=== PATIENT | female | born 1960 | race African-American/Black ===

== ENCOUNTER 2021-12-19 10:58 | Outpatient (REF) | payer OTHER, SELFPAY ==
[2021-12-19 13:18] LABS: MANUAL DIFF FLAG NO
[2021-12-19 13:34] LABS: Basophils Absolute Auto 0.1 X10*3/uL (0.0-0.2); Basophils Percent Auto 0.9 % (0-2); Eosinophils Absolute Auto 0.2 X10*3/uL (0.0-0.4); Eosinophils Percent Auto 2.9 % (0-4); Hematocrit 45.8 % (37.0-47.0); Hemoglobin 14.8 g/dl (12.0-16.0); Imm Gran Abs Auto 0.02 X10*3/uL (0.00-0.03); Imm Gran Pct Auto 0.3 % (0.0-0.4); Lymphocytes Absolute Auto 2.9 X10*3/uL (1.2-4.9); Lymphocytes Percent Auto 36.3 % (20-40); Mean Corpuscular HGB Conc 32.3 g/dl (31.0-35.0); Mean Corpuscular Volume 86.6 fL (80.0-98.0); Mean Platelet Volume 11.7 fL (9.4-12.3); Monocytes Absolute Auto 0.7 X10*3/uL (0.1-1.2); Monocytes Percent Auto 8.4 % (2-11); Neutrophils Absolute Auto 4.1 x10*3/uL (2.0-8.3); Neutrophils Percent Auto 51.2 % (45-73); Platelet Count 255 X10*3/uL (160-400); Red Blood Count 5.29 X10*6/uL (4.20-5.50); Red Cell Distribution Width 13.1 % (11.0-16.0)
[2021-12-19 13:37] LABS: Alanine Aminotransferase 43 U/L (0-31); Albumin Level 3.9 g/dL (3.5-5.0); Alkaline Phosphatase 103 U/L (39-117); Anion Gap 16 (12-20); Aspartate Amino Transferase 30 U/L (5-31); Bilirubin Total 0.5 mg/dL (0.0-1.0); Blood Urea Nitrogen 8 mg/dL (9-16); C Reactive Protein 0.28 mg/dL (< or = 0.50); Calcium 8.9 mg/dL (8.4-10.2); Carbon Dioxide 23 mmol/L (22-29); Chloride 105 mmol/L (96-108); Estimated Glomerular Filt Rate > 60; Glucose Random 87 mg/dL (60-115); Potassium 4.4 mmol/L (3.3-5.1); Sodium 140 mmol/L (135-145); Total Protein 7.3 g/dL (6.5-8.0)
[2021-12-19 19:09] LABS: Erythrocyte Sedimentation Rate 5 MM/HR (0-20)
[2021-12-21 22:36] LABS: TS Negative Control Passed; TS Panel A 0; TS Panel B 0; TS Positive Control Passed; TSpotTB Negative (Negative)
== END 2021-12-19 10:59 | disposition home or self-care (01) ==
LOC: HO.10HDL 10:58
PROVIDERS: Visit Provider Internal Medicine Rheumatology
DX: M05.9 Rheumatoid arthritis with rheumatoid factor, unspecified (principal); M51.36 Other intervertebral disc degeneration, lumbar region; Z79.899 Other long term (current) drug therapy
CPT/HCPCS: 36415; 80053; 85025; 85652; 86140; 86481; 99212

== ENCOUNTER → 2022-04-19 10:40 | Outpatient (BNVA) | payer OTHER, SELFPAY | PROVIDERS: PCP Internal Medicine; Visit Provider Internal Medicine Rheumatology | DX: M05.9 Rheumatoid arthritis with rheumatoid factor, unspecified (principal); M19.049 Primary osteoarthritis, unspecified hand; M51.36 Other intervertebral disc degeneration, lumbar region; Z79.52 Long term (current) use of systemic steroids; Z79.899 Other long term (current) drug therapy | CPT/HCPCS: 99212 ==

== ENCOUNTER → 2022-11-02 10:40 | Outpatient (BNVA) | payer OTHER, SELFPAY | PROVIDERS: PCP Internal Medicine; Visit Provider Internal Medicine Rheumatology | DX: M05.9 Rheumatoid arthritis with rheumatoid factor, unspecified (principal); M51.36 Other intervertebral disc degeneration, lumbar region; E55.9 Vitamin D deficiency, unspecified; Z79.899 Other long term (current) drug therapy; Z79.52 Long term (current) use of systemic steroids | CPT/HCPCS: 99212 ==

== ENCOUNTER 2022-11-02 12:05 | Outpatient (REF) | payer OTHER, SELFPAY ==
[2022-11-02 13:34] LABS: MANUAL DIFF FLAG NO
[2022-11-02 13:38] LABS: Basophils Absolute Auto 0.1 X10*3/uL (0.0-0.2); Basophils Percent Auto 0.8 % (0-2); Eosinophils Absolute Auto 0.3 X10*3/uL (0.0-0.4); Eosinophils Percent Auto 3.1 % (0-4); Hematocrit 47.9 % (37.0-47.0); Hemoglobin 15.6 g/dl (12.0-16.0); Imm Gran Abs Auto 0.01 X10*3/uL (0.00-0.03); Imm Gran Pct Auto 0.1 % (0.0-0.4); Lymphocytes Percent Auto 35.4 % (20-40); Mean Corpuscular HGB Conc 32.6 g/dl (31.0-35.0); Mean Corpuscular Hemoglobin 28.2 pg (27.0-33.0); Mean Corpuscular Volume 86.6 fL (80.0-98.0); Mean Platelet Volume 11.9 fL (9.4-12.3); Monocytes Absolute Auto 0.7 X10*3/uL (0.1-1.2); Neutrophils Absolute Auto 4.5 x10*3/uL (2.0-8.3); Neutrophils Percent Auto 52.6 % (45-73); Platelet Count 264 X10*3/uL (160-400); Red Blood Count 5.53 X10*6/uL (4.20-5.50); Red Cell Distribution Width 13.1 % (11.0-16.0); White Blood Count 8.5 X10*3/uL (4.8-10.8)
[2022-11-02 14:08] LABS: C Reactive Protein 0.23 mg/dL (< or = 0.50)
[2022-11-02 14:21] LABS: Erythrocyte Sedimentation Rate 7 MM/HR (0-20)
[2022-11-04 17:13] LABS: TS Negative Control Passed; TS Panel A 0; TS Panel B 0; TS Positive Control Passed; TSpotTB Negative (Negative)
== END 2022-11-02 12:06 | disposition home or self-care (01) ==
LOC: HO.10HDL 12:05
PROVIDERS: Visit Provider Internal Medicine Rheumatology
DX: Z11.1 Encounter for screening for respiratory tuberculosis (principal); M51.36 Other intervertebral disc degeneration, lumbar region; M05.9 Rheumatoid arthritis with rheumatoid factor, unspecified; E55.9 Vitamin D deficiency, unspecified; Z79.52 Long term (current) use of systemic steroids; Z79.899 Other long term (current) drug therapy
CPT/HCPCS: 36415; 85025; 85652; 86140; 86481

== ENCOUNTER 2022-11-17 14:51 | Outpatient (REF) | payer OTHER, SELFPAY ==
--- NOTE | ~2022-11-17 | MM_ITS ---
EXAMINATION: BONE DENSITOMETRY CLINICAL INDICATION: Long-term, current, use of systemic steroids. COMPARISON: This is the patient's baseline examination. TECHNIQUE: Using a [employer] DXA System (software version: 13.1) manufactured by [employer], dual-energy x-ray absorptiometry was performed of the lumbar spine and left hip. The images are of good technical quality. Summary results are attached. FINDINGS: LEFT FEMUR, NECK: BMD 0.976 g/cm2, Z-score -0.2, T-score -0.4, normal. LEFT FEMUR, TOTAL: BMD 1.062 g/cm2, Z-score 0.3, T-score 0.4, normal. AP SPINE L1-L4: BMD 1.279 g/cm2, Z-score 1.2, T-score 0.8, normal. IDENTIFIED RISK FACTORS: Rheumatoid arthritis, osteoporosis, height loss. Early menopause, secondary osteoporosis, glucocorticoids (chronic). HISTORY OF FRACTURE: None listed. MEDICATIONS: Vitamin D. MM/XR DEXA axial skeleton IMPRESSION: 1. DIAGNOSIS: Normal bone density based on the lowest T-score value of -0.4 in the femoral neck applying World Health Organization criteria. 2. 10-YEAR FRACTURE RISK PREDICTION, FRAX: According to the guidelines, FRAX calculation should only be performed on patients in the osteopenia bone density category. Therefore, FRAX was not performed on this patient. 3. Treatment Recommendations: NOF guidelines recommend consideration for treatment in postmenopausal women and men age 50 and older presenting with the following: -A hip or vertebral (clinical or morphometric) fracture. -T-score less than or equal to -2.5 at the femoral neck or spine after appropriate evaluation to exclude secondary causes. -Low bone mass at the hip or spine and a 10-year fracture probability by FRAX of greater than or equal to 3% for hip fracture or greater than or equal to 20% for major osteoporotic fracture based on the [place] adapted WHO algorithm. 4. Other Recommendations: All treatment decisions require clinical judgment and consideration of individual patient factors, including patient preferences, comorbidities, previous drug use, risk factors not captured in the FRAX model (e.g. frailty, falls, vitamin D deficiency, increased bone turnover, interval significant decline in bone density) and possible under or overestimation of fracture risk by FRAX. FUTURE SCAN RECOMMENDATION: People with diagnosed cases of osteoporosis or at high risk for fracture should have regular bone mineral density tests. For patients eligible for Medicare, routine testing is allowed once every 2 years. The testing frequency can be increased to one year for patients who have rapidly progressing disease, those who are receiving or discontinuing medical therapy to restore bone mass, or have additional risk factors.
== END 2022-11-17 14:52 | disposition home or self-care (01) ==
LOC: HO.MAMMO 14:51
PROVIDERS: Visit Provider Internal Medicine Rheumatology
DX: Z13.820 Encounter for screening for osteoporosis (principal); Z78.0 Asymptomatic menopausal state; Z79.52 Long term (current) use of systemic steroids
CPT/HCPCS: 77080

== ENCOUNTER 2023-02-28 10:20 | Outpatient (AMB) | payer OTHER, SELFPAY ==
--- NOTE | 2023-02-28 10:21 | A.OFFVIS_ITS ---
Intake Vital Signs 02/28/23 10:26 Height 5 ft 4 in Weight 161 lb 6.054 oz BMI 27.7 BP 142/80 H Blood Pressure Location Lt brachial Position Sitting Pulse 75 Pulse Source Pulse Oximeter Temp 97.2 F Temp Source Skin Pulse Oximetry (%) 97 Oxygen Delivery Method Room Air Intake Visit Reasons: RA Intake Note: Patient presents today to follow up on RA. c/o bakari hand pain and bakari ankle pain Mds Rn Required: No Accompanied by: Self / Same As Patient Allergies No Known Allergies Allergy (Verified 02/28/23 10:25) HPI HPI Comments History of Present Illness Details The patient returns for evaluation of her rheumatoid arthritis. She remains on the Humira taking 40 mg every 2 weeks and prednisone 1 mg daily. She gets occasional back pain and sciatica for which she does have some Percocet available. She did get some benefit with a corticosteroid injection in the back from physiatry. She is thinking about returning for another injection for that problem. She still has at the end of the day more pains in the knees and hands. She wonders if this will progress as she gets older. At her last visit and today she again says that towards the end of the interval between Humira shot she gets more pain in the hands and knees. I had indicated she should be taking the Humira every week but she was afraid to, worried about the Humira damaging her immune system. She has already received the COVID and flu shots for this season. She does have an active job at [employer]. She had seen her primary doctor about some memory difficulties and further workup is pending. She had a bone density test that did not show any osteoporosis. [facility] Surgical History No history of previous surgery Family History Mother CHF (congestive heart failure) Arthritis Father Diabetes Brother Diabetes Sister CHF (congestive heart failure) Arthritis Maternal Grandfather Cancer Maternal Grandmother Cancer Social History Household Members: Spouse Housing: Apartment Are you a primary direct care counselor to a significant other at home: No Do you presently have visiting nurse or other home services: No Alcohol intake: never Patient Tobacco Use Status: Former Tobacco user Years Smoked: Quit 1 year ago e-Cigarette/Vaping Use: Never Used service: No Current occupational status: employed Current occupation: [employer] Review of Systems Const Details: Negative for appetite change, weight change, fever, chills, malaise and fatigue Eyes Details: Negative for vision change, dry eyes,headaches and dizziness GI Details: Negative indigestion/heartburn, nausea, abdominal pain, bowel changes, diarrhea, constipation and bloody stool. Skin/Breast Details: Negative for itching, rash, hives, Raynaud's symptoms, sun sensitivity, and skin cancer Neuro Details: Memory difficulties at times. Negative for epilepsy, palsy, stroke, changes in speech, tingling and weakness Brian/Lymph Details: Negative for excessive bruising or bleeding. Physical Exam Vital Signs: Last Vital Signs Temp 97.2 F 02/28/23 10:26 Pulse 75 02/28/23 10:26 BP 142/80 H 02/28/23 10:26 Pulse Ox 97 02/28/23 10:26 Oxygen Delivery Method Room Air 02/28/23 10:26 BMI result Body Mass Index 27.7 APPEARANCE: Patient in no acute distress EYES no redness, pupils equal and reactive to light, eyelids normal. No temporal artery tenderness redness or swelling. Cervical Spine:.? Full range of motion without pain; no tenderness. Thoracic Spine:? No scoliosis.? No tenderness on palpation. Lumbar Spine:.? Alignment normal.? Full range of motion without pain, no tenderness. Chest Wall:.? No tenderness, swelling, increased warmth or erythema. Hands:.? Right:? There is no swelling in the MCPs but the 1st is slightly tender.? There is some slight bony enlargement at the thumb IP and the 2nd PIP joints these are slightly the tender today.? There is some mild bony enlargement and tenderness at the 2nd DIP joint.? No flexor tendon triggering, thenar atrophy or sensory loss.? Left:? Mild tenderness without swelling at the 1st 2 MCP joints.? There is slight tenderness without swelling at the 2nd and 3rd PIP joints.? There is some minimal bony enlargement and slight tenderness at the 2nd PIP joint.? She has no flexor tendon triggering, thenar atrophy or sensory loss is appreciated. Wrists:? Left: Mild pain with flexion extension at 75 degrees.? Slight tenderness but no swelling.? Right:? Normal pain-free range of motion without tenderness, swelling, increased warmth or erythema. Elbows:. Normal pain-free range of motion without tenderness, swelling, increased warmth or erythema. Shoulders:.??Left:? Mild discomfort with extremes of normal range of motion. There is some slight anterior tenderness without abductor weakness or adenopathy.? Right joint? Full range of motion without pain. No tenderness, weakness, swelling, increased warmth or erythema. Hips:.? Full range of motion without pain. Hip bursa:.? No tenderness. Knees:.?? Normal pain-free range of motion without tenderness, swelling, increased warmth or erythema.? There is no effusion or crepitation Ankles:.? Normal pain-free range of motion without tenderness, swelling, increased warmth or erythema. Feet:? Right:? Mild hallux valgus and MTP enlargement at the 1st MTP.? That area is slightly tender.? Left: Mild bony enlargement and tenderness at the 1st MTP.? No other areas of tenderness or swelling. Results Reviewed Results Reviewed: Laboratory Tests 12/19/21 11/02/22 11:00 12:08 WBC 8.5 Hgb 15.6 ESR 5 7 C-Reactive Protein 0.28 0.23 T-scores from DEXA in November 2022: Femoral neck -0.4, femur -0.4, LS spine+ 0.8 Assessment & Plan Assessment & Plan (1) Osteoarthritis of finger: Code(s): M19.049 - Primary osteoarthritis, unspecified hand (2) Long-term use of immunosuppressant medication: Code(s): Z79.899 - Other long term care social worker (current) drug therapy (3) Seropositive rheumatoid arthritis: Comment: Onset late 2016 - migratory pattern Hydroxychloroquine use not possible due to retinal abnormalities Sulfasalazine started 08/22 - ineffective by 04/23 Methotrexate started 04/23 - stopped 01/24 due to LFT elelvation Humira started summer 2020: She did well but was frightened by COVID outbreak so she stopped that at the end of 2020. Humira restarted 2021 Code(s): M05.9 - Rheumatoid arthritis with rheumatoid factor, unspecified Plan Rheumatoid arthritis with some tenderness in the hands with minimal if any synovitis palpable. Some of this pain could be in joints with some mild OA. However the fact that it gets better with Humira but then worsens towards the end of the Humira dosing interval indicates perhaps she could benefit from a more frequent dosing on the Humira. We will again ask her to go up to weekly. I believe this has already been approved by her insurance. She also was refilled on the diclofenac gel that she could put on the fingers if need be. Her bone density looked good so I do not think she needs additional treatment and she seems to be tolerating this very low dose of prednisone. We will check inflammatory markers and CBC today. Follow-up in about 4 months. Orders: Orders Erythrocyte Sedimentation Rate Today M05.9 - Rheumatoid arthritis with rheumatoid factor, unspecified Complete Blood Count Auto Diff Today M05.9 - Rheumatoid arthritis with rheumatoid factor, unspecified, Z79.899 - Other long term care social worker (current) drug therapy C Reactive Protein Today M05.9 - Rheumatoid arthritis with rheumatoid factor, unspecified Medications: Refilled adalimumab (Humira(CF) Pen) Note increase in frequency of Humira dosing to once a week 40 mg (0.4 mL) subcut QWEEK 4 ea 5RF M05.9 - Rheumatoid arthritis with rheumatoid factor, unspecified diclofenac sodium 1% 1-2 gram topically to affected joints twice a day if needed 100 grams 4RF M19.049 - Primary osteoarthritis, unspecified hand Coding Level of Care Code Est Pt Level 3 (65399) Diagnoses Osteoarthritis of finger M19.049 Long-term use of immunosuppressant medication Z79.899 Seropositive rheumatoid arthritis M05.9
[2023-02-28 10:26] VITALS: BP 142/80; PULSE 75; TEMP 36.2; O2SAT 97; BMI 27.7
== END 2023-02-28 11:00 | disposition home or self-care (01) ==
PROVIDERS: PCP Internal Medicine; Visit Provider Internal Medicine Rheumatology
DX: M19.049 Primary osteoarthritis, unspecified hand (principal); Z79.899 Other long term (current) drug therapy; M05.79 Rheumatoid arthritis with rheumatoid factor of multiple sites without organ or systems involvement
CPT/HCPCS: 99214

== ENCOUNTER → 2023-02-28 10:20 | Outpatient (BNVA) | payer OTHER, SELFPAY | PROVIDERS: PCP Internal Medicine; Visit Provider Internal Medicine Rheumatology | DX: M05.9 Rheumatoid arthritis with rheumatoid factor, unspecified (principal); M19.049 Primary osteoarthritis, unspecified hand; Z79.899 Other long term (current) drug therapy | CPT/HCPCS: 99212 ==

== ENCOUNTER 2023-02-28 11:24 | Outpatient (REF) | payer OTHER, SELFPAY ==
[2023-02-28 13:17] LABS: MANUAL DIFF FLAG NO
[2023-02-28 13:23] LABS: Basophils Absolute Auto 0.1 X10*3/uL (0.0-0.2); Basophils Percent Auto 0.7 % (0-2); Eosinophils Absolute Auto 0.2 X10*3/uL (0.0-0.4); Eosinophils Percent Auto 2.8 % (0-4); Hematocrit 46.1 % (37.0-47.0); Imm Gran Abs Auto 0.02 X10*3/uL (0.00-0.03); Imm Gran Pct Auto 0.2 % (0.0-0.4); Lymphocytes Absolute Auto 2.5 X10*3/uL (1.2-4.9); Lymphocytes Percent Auto 30.6 % (20-40); Mean Corpuscular HGB Conc 32.5 g/dl (31.0-35.0); Mean Corpuscular Hemoglobin 28.1 pg (27.0-33.0); Mean Corpuscular Volume 86.5 fL (80.0-98.0); Mean Platelet Volume 11.7 fL (9.4-12.3); Monocytes Absolute Auto 0.7 X10*3/uL (0.1-1.2); Monocytes Percent Auto 7.9 % (2-11); Neutrophils Absolute Auto 4.8 x10*3/uL (2.0-8.3); Neutrophils Percent Auto 57.8 % (45-73); Platelet Count 237 X10*3/uL (160-400); Red Blood Count 5.33 X10*6/uL (4.20-5.50); Red Cell Distribution Width 12.9 % (11.0-16.0); White Blood Count 8.3 X10*3/uL (4.8-10.8)
[2023-02-28 13:41] LABS: C Reactive Protein 0.18 mg/dL (< or = 0.50)
[2023-02-28 14:11] LABS: Erythrocyte Sedimentation Rate 6 MM/HR (0-20)
== END 2023-02-28 11:25 | disposition home or self-care (01) ==
LOC: HO.10HDL 11:24
PROVIDERS: Visit Provider Internal Medicine Rheumatology
DX: M05.9 Rheumatoid arthritis with rheumatoid factor, unspecified (principal); Z79.899 Other long term (current) drug therapy
CPT/HCPCS: 36415; 85025; 85652; 86140

== ENCOUNTER 2023-10-26 10:02 | Outpatient (AMB) | payer OTHER, SELFPAY ==
[2023-10-26 10:16] VITALS: BP 116/64; PULSE 69; O2SAT 95; BMI 26.0
--- NOTE | 2023-10-26 10:16 | MHC.OFFVIS ---
Vital Signs 10/26/23 10:16 Height 5 ft 4 in Weight 151 lb 3.794 oz BMI 26.0 BP 116/64 Blood Pressure Location Rt brachial Position Sitting Pulse 69 Pulse Source Pulse Oximeter Pulse Oximetry (%) 95 Oxygen Delivery Method Room Air Intake Visit Reasons: RA/CM Child Care Required: No Accompanied by: Self / Same As Patient Allergies No Known Allergies Allergy (Verified 10/26/23 10:17) Medication List - Last Reconciled 10/26/23 by Preeti Pierson MD acyclovir 400 mg PO BID PRN cholecalciferol (vitamin D3) 50 mcg PO DAILY cyclobenzaprine 5 mg PO TID PRN diclofenac sodium 1% 1-2 gram topically to affected joints twice a day if needed Humira(CF) Pen (adalimumab) 40 mg (0.4 mL) subcut QWEEK NS oxycodone-acetaminophen 5-325 mg 1 tab PO DAILY PRN pantoprazole (Protonix) 40 mg PO DAILY prednisone 2 mg (2 x 1 mg) PO DAILY HPI Comments Details: 63-year-old female with seropositive RA returns for follow-up. She was last seen by Dr. Reyna 02/2023. After last visit patient started taking the Humira weekly instead of every other week. She states that it did help. She continues to have some pain in her fingers. Usually the DIPs. She has a right foot bunion that is painful and she would like to get it surgically fixed. Yun to use the prednisone 2 mg daily. Most recent history by Dr. Reyna 02/2023: The patient returns for evaluation of her rheumatoid arthritis. She remains on the Humira taking 40 mg every 2 weeks and prednisone 1 mg daily. She gets occasional back pain and sciatica for which she does have some Percocet available. She did get some benefit with a corticosteroid injection in the back from physiatry. She is thinking about returning for another injection for that problem. She still has at the end of the day more pains in the knees and hands. She wonders if this will progress as she gets older. At her last visit and today she again says that towards the end of the interval between Humira shot she gets more pain in the hands and knees. I had indicated she should be taking the Humira every week but she was afraid to, worried about the Humira damaging her immune system. She has already received the COVID and flu shots for this season. She does have an active job at [employer]. She had seen her primary doctor about some memory difficulties and further workup is pending. She had a bone density test that did not show any osteoporosis. [facility] Surgical History No history of previous surgery Family History Mother CHF (congestive heart failure) Arthritis Father Diabetes Brother Diabetes Sister CHF (congestive heart failure) Arthritis Maternal Grandfather Cancer Maternal Grandmother Cancer Social History Household Members: Spouse Housing: Apartment Are you a primary manager intensive care unit to a significant other at home: No Do you presently have visiting nurse or other home services: No Alcohol intake: never Patient Tobacco Use Status: Former Tobacco user Years Smoked: Quit 1 year ago e-Cigarette/Vaping Use: Never Used service: No Current occupational status: employed Current occupation: [employer] Review of Systems [facility] [place] Reports deformity, Reports arthralgias, Reports joint swelling and Reports stiffness Physical Exam Const General: cooperative, healthy appearing and comfortable Nutritional Appearance: overweight Orientation/consciousness: patient oriented x3 Limitations: no limitations HEENT Head: Yes normocephalic and Yes atraumatic Resp Effort & Inspection: normal respiratory effort and able to speak in complete sentences Auscultation: clear to auscultation bilaterally Cardio Rate: regular rate Rhythm: regular rhythm Skin General skin exam: no rashes or lesions noted Neuro General: patient oriented x3 Extrem Other: No active synovitis both hands , wrists Multiple Heberden's nodes, most notable is bilateral index DIPs that are slightly tender Normal range of motion of elbows and shoulders without pain No knee pain with full flexion-extension Bilateral bunions, much more prominent on the right mildly tender line Second through 5th MTPs without tenderness bilaterally Results Reviewed Results Reviewed: Laboratory Tests 3 T-scores from DEXA in November 2022: Femoral neck -0.4, femur -0.4, LS spine+ 0.8 Assessment & Plan Assessment & Plan (1) Seropositive rheumatoid arthritis: Comment: ++RF ++CCP Onset late 2016 - migratory pattern Hydroxychloroquine use not possible due to retinal abnormalities Sulfasalazine started 08/22 - ineffective by 04/23 Methotrexate started 04/23 - stopped 01/24 due to LFT elelvation Humira started summer 2020: She did well but was frightened by COVID outbreak so she stopped that at the end of 2020. Humira restarted 2021 advanced to weekly 02/2023 Code(s): M05.9 - Rheumatoid arthritis with rheumatoid factor, unspecified Category: Medical Plan: This is 63-year-old female with seropositive RA presents for follow-up. This is her 1st visit with me. She used to follow-up with Dr. Reyna. Patient is doing quite well with no active synovitis on Humira 40 mg weekly and prednisone 2 mg daily. Her RA is well controlled, likely the prednisone helps her hand osteoarthritis Continue Humira 40 mg weekly Labs today and before next visit in 6 months (2) Long-term use of immunosuppressant medication: Code(s): Z79.899 - Other fpc (current) drug therapy Category: Medical (3) On prednisone therapy: Code(s): Z79.52 - detention (current) use of systemic steroids Category: Medical Plan: T-scores from DEXA in November 2022: Femoral neck -0.4, femur -0.4, LS spine+ 0.8 Only on 2 mg daily. Advised patient to try to lower it to 1 mg daily. (4) Osteoarthritis of hands, bilateral: Code(s): M19.041 - Primary osteoarthritis, right hand; M19.042 - Primary osteoarthritis, left hand Category: Medical Qualifiers: Osteoarthritis type: primary Qualified Code(s): M19.041 - Primary osteoarthritis, right hand; M19.042 - Primary osteoarthritis, left hand Plan: Referred patient to OT. She is interested in finger splints (5) Bilateral bunions: Code(s): M21.611 - Bunion of right foot; M21.612 - Bunion of left foot Category: Medical Plan: Advised patient to establish care with a power and recovery supervisor Plan I spent 45 minutes reviewing patient's chart, evaluating patient, ordering diagnostic workup, counseling patient and documenting in the chart Orders: Orders Complete Blood Count Auto Diff 6 Months M05.9 - Rheumatoid arthritis with rheumatoid factor, unspecified Erythrocyte Sedimentation Rate 6 Months M05.9 - Rheumatoid arthritis with rheumatoid factor, unspecified Comprehensive Met. Panel Today M05.9 - Rheumatoid arthritis with rheumatoid factor, unspecified C Reactive Protein Today M05.9 - Rheumatoid arthritis with rheumatoid factor, unspecified Erythrocyte Sedimentation Rate Today M05.9 - Rheumatoid arthritis with rheumatoid factor, unspecified Comprehensive Met. Panel 6 Months M05.9 - Rheumatoid arthritis with rheumatoid factor, unspecified C Reactive Protein 6 Months M05.9 - Rheumatoid arthritis with rheumatoid factor, unspecified Complete Blood Count Auto Diff Today M05.9 - Rheumatoid arthritis with rheumatoid factor, unspecified OT Evaluation and Treatment Today M19.041 - Primary osteoarthritis, right hand, M19.042 - Primary osteoarthritis, left hand Medications: Refilled prednisone 2 mg (2 x 1 mg) PO DAILY 60 tabs 3RF M05.9 - Rheumatoid arthritis with rheumatoid factor, unspecified Coding Level of Care Code Est Pt Level 5 (58805) Diagnoses Seropositive rheumatoid arthritis M05.9 Long-term use of immunosuppressant medication Z79.899 On prednisone therapy Z79.52 Primary osteoarthritis of both hands M19.041; M19.042 Osteoarthritis type: primary Bilateral bunions M21.611; M21.612
== END 2023-10-26 10:30 | disposition home or self-care (01) ==
PROVIDERS: PCP Internal Medicine; Visit Provider Student in an Organized Health Care Education/Training Program
DX: M05.79 Rheumatoid arthritis with rheumatoid factor of multiple sites without organ or systems involvement (principal); Z79.899 Other long term (current) drug therapy; Z79.52 Long term (current) use of systemic steroids; M19.041 Primary osteoarthritis, right hand; M19.042 Primary osteoarthritis, left hand; M21.611 Bunion of right foot; M21.612 Bunion of left foot
CPT/HCPCS: 99215

== ENCOUNTER → 2023-10-26 10:02 | Outpatient (BNVA) | payer OTHER, SELFPAY | PROVIDERS: PCP Internal Medicine; Visit Provider Student in an Organized Health Care Education/Training Program | DX: M05.9 Rheumatoid arthritis with rheumatoid factor, unspecified (principal); M19.041 Primary osteoarthritis, right hand; M19.042 Primary osteoarthritis, left hand; M21.611 Bunion of right foot; M21.612 Bunion of left foot; Z79.52 Long term (current) use of systemic steroids; Z79.899 Other long term (current) drug therapy | CPT/HCPCS: 99212 ==

== ENCOUNTER 2023-10-26 10:35 | Outpatient (REF) | payer OTHER, SELFPAY ==
[2023-10-26 13:14] LABS: MANUAL DIFF FLAG NO
[2023-10-26 13:20] LABS: Basophils Absolute Auto 0.1 X10*3/uL (0.0-0.2); Basophils Percent Auto 0.7 % (0-2); Eosinophils Absolute Auto 0.3 X10*3/uL (0.0-0.4); Eosinophils Percent Auto 3.6 % (0-4); Hemoglobin 14.6 g/dl (12.0-16.0); Imm Gran Abs Auto 0.01 X10*3/uL (0.00-0.03); Imm Gran Pct Auto 0.1 % (0.0-0.4); Lymphocytes Absolute Auto 2.5 X10*3/uL (1.2-4.9); Lymphocytes Percent Auto 34.7 % (20-40); Mean Corpuscular HGB Conc 33.2 g/dl (31.0-35.0); Mean Corpuscular Hemoglobin 28.1 pg (27.0-33.0); Mean Corpuscular Volume 84.8 fL (80.0-98.0); Monocytes Absolute Auto 0.7 X10*3/uL (0.1-1.2); Monocytes Percent Auto 10.1 % (2-11); Neutrophils Absolute Auto 3.7 x10*3/uL (2.0-8.3); Neutrophils Percent Auto 50.8 % (45-73); Platelet Count 245 X10*3/uL (160-400); Red Blood Count 5.19 X10*6/uL (4.20-5.50); Red Cell Distribution Width 13.3 % (11.0-16.0); White Blood Count 7.2 X10*3/uL (4.8-10.8)
[2023-10-26 13:33] LABS: Alanine Aminotransferase 93 U/L (0-31); Albumin Level 3.7 g/dL (3.5-5.0); Alkaline Phosphatase 110 U/L (39-117); Anion Gap 13 (12-20); Aspartate Amino Transferase 63 U/L (5-31); Bilirubin Total 0.6 mg/dL (0.0-1.0); Blood Urea Nitrogen 14 mg/dL (9-16); C Reactive Protein 0.29 mg/dL (< or = 0.50); Calcium 9.3 mg/dL (8.4-10.2); Carbon Dioxide 26 mmol/L (22-29); Chloride 104 mmol/L (96-108); Estimated Glomerular Filt Rate > 60; Glucose Random 114 mg/dL (60-115); Potassium 3.9 mmol/L (3.3-5.1); Sodium 139 mmol/L (135-145)
[2023-10-26 14:32] LABS: Erythrocyte Sedimentation Rate 15 MM/HR (0-20)
== END 2023-10-26 10:36 | disposition home or self-care (01) ==
LOC: HO.10HDL 10:35
PROVIDERS: Visit Provider Student in an Organized Health Care Education/Training Program
DX: M05.9 Rheumatoid arthritis with rheumatoid factor, unspecified (principal)
CPT/HCPCS: 36415; 80053; 85025; 85652; 86140

== ENCOUNTER 2024-04-17 10:49 | Outpatient (REF) | payer OTHER, SELFPAY ==
[2024-04-17 11:33] LABS: MANUAL DIFF FLAG NO
[2024-04-17 11:46] LABS: Basophils Absolute Auto 0.1 X10*3/uL (0.0-0.2); Basophils Percent Auto 0.8 % (0-2); Eosinophils Absolute Auto 0.2 X10*3/uL (0.0-0.4); Eosinophils Percent Auto 2.9 % (0-4); Hematocrit 45.6 % (37.0-47.0); Imm Gran Abs Auto 0.01 X10*3/uL (0.00-0.03); Imm Gran Pct Auto 0.1 % (0.0-0.4); Lymphocytes Absolute Auto 2.5 X10*3/uL (1.2-4.9); Lymphocytes Percent Auto 32.5 % (20-40); Mean Corpuscular HGB Conc 32.9 g/dl (31.0-35.0); Mean Corpuscular Hemoglobin 28.5 pg (27.0-33.0); Mean Corpuscular Volume 86.7 fL (80.0-98.0); Mean Platelet Volume 11.1 fL (9.4-12.3); Monocytes Absolute Auto 0.6 X10*3/uL (0.1-1.2); Neutrophils Absolute Auto 4.3 x10*3/uL (2.0-8.3); Neutrophils Percent Auto 55.7 % (45-73); Platelet Count 236 X10*3/uL (160-400); Red Blood Count 5.26 X10*6/uL (4.20-5.50); Red Cell Distribution Width 13.2 % (11.0-16.0); White Blood Count 7.7 X10*3/uL (4.8-10.8)
[2024-04-17 12:15] LABS: Alanine Aminotransferase 45 U/L (0-31); Albumin Level 3.6 g/dL (3.5-5.0); Alkaline Phosphatase 115 U/L (39-117); Anion Gap 11 (12-20); Aspartate Amino Transferase 33 U/L (5-31); Bilirubin Total 0.4 mg/dL (0.0-1.0); Blood Urea Nitrogen 12 mg/dL (9-16); C Reactive Protein 0.12 mg/dL (< or = 0.50); Calcium 9.3 mg/dL (8.4-10.2); Carbon Dioxide 27 mmol/L (22-29); Chloride 106 mmol/L (96-108); Estimated Glomerular Filt Rate > 60; Glucose Random 183 mg/dL (60-115); Potassium 3.7 mmol/L (3.3-5.1); Sodium 140 mmol/L (135-145); Total Protein 7.3 g/dL (6.5-8.0)
[2024-04-17 12:25] LABS: Erythrocyte Sedimentation Rate 8 MM/HR (0-20)
== END 2024-04-17 10:50 | disposition home or self-care (01) ==
LOC: HO.LAB 10:49
PROVIDERS: PCP Internal Medicine; Visit Provider Student in an Organized Health Care Education/Training Program
DX: M05.9 Rheumatoid arthritis with rheumatoid factor, unspecified (principal)
CPT/HCPCS: 36415; 80053; 85025; 85652; 86140

== ENCOUNTER 2024-06-18 15:37 | Outpatient (AMB) | payer OTHER, SELFPAY ==
--- NOTE | 2024-06-18 15:43 | MHC.OFFVIS ---
Vital Signs 06/18/24 15:46 06/18/24 15:47 Height 5 ft 4 in Weight 153 lb 10.595 oz 153 lb 10.595 oz BMI 26.4 BP 134/80 Blood Pressure Location Lt brachial Position Sitting Pulse 88 Pulse Source Pulse Oximeter Pulse Oximetry (%) 98 Oxygen Delivery Method Room Air Intake Visit Reasons: RA Intake Note: Patient presents for RA. Allergies No Known Allergies Allergy (Verified 06/18/24 15:46) Medication List - Last Reconciled 06/18/24 by Tana Triplett MD acyclovir 400 mg PO BID PRN cholecalciferol (vitamin D3) 50 mcg PO DAILY cyclobenzaprine 5 mg PO TID PRN diclofenac sodium 1% 1-2 gram topically to affected joints twice a day if needed Humira(CF) Pen (adalimumab) 40 mg (0.4 mL) subcut QWEEK NS oxycodone-acetaminophen 5-325 mg 1 tab PO DAILY PRN pantoprazole (Protonix) 40 mg PO DAILY prednisone 2 mg (2 x 1 mg) PO DAILY HPI Comments Details: Patient is a 64-year-old female with GERD, polyarticular osteoarthritis and seropositive rheumatoid arthritis here today for follow up Interval History: Patient last seen 10/26/[address] Pierson. At that time she had increased her Humira from every other week to weekly which was noted with improvement in her pain. Also continues to use prednisone 2 mg daily Today, Notes that she is a little more achy all over Stiffness x 1 hour Rheumatologic History: ++RF ++CCP Onset late 2016 - migratory pattern Hydroxychloroquine use not possible due to retinal abnormalities Sulfasalazine started 08/22 - ineffective by 04/23 Methotrexate started 04/23 - stopped 01/24 due to LFT elelvation Humira started summer 2020: She did well but was frightened by COVID outbreak so she stopped that at the end of 2020. Humira restarted 2021 advanced to weekly 02/2023 Current Rheumatology Medication(s): Humira 40 mg every week Prednisone 2 mg daily [facility] Medical History (Updated 06/18/24 @ 16:06 by Tana Triplett MD) Encounter for monitoring of adalimumab therapy Surgical History No history of previous surgery Family History Mother CHF (congestive heart failure) Arthritis Father Diabetes Brother Diabetes Sister CHF (congestive heart failure) Arthritis Maternal Grandfather Cancer Maternal Grandmother Cancer Social History Household Members: Spouse Housing: Apartment Are you a primary daycare director to a significant other at home: No Do you presently have visiting nurse or other home services: No 75 years or older and lives alone: No Alcohol intake: never Patient Tobacco Use Status: Former Tobacco user Years Smoked: Quit 1 year ago e-Cigarette/Vaping Use: Never Used service: No Current occupational status: employed Current occupation: [employer] Review of Systems Const Details: Review of Systems Constitutional: Denies fever, chills, weight loss ENT: Denies vision changes, eye pain or eye redness, dental caries, dry mouth GI: Denies nausea, vomiting, diarrhea, abdominal pain, change in BM Pulm: Denies SOB, MORATAYA, hemoptysis, wheezing Cards: Denies chest pain, palpitations Skin: Denies Raynaud's, rash, nail changes, photosensitivity, OFFICE CLERK ROUTINE: Denies headaches, weakness, paresthesias, recurrent falls MSK: as per HPI All other systems reviewed and are unremarkable except noted above Physical Exam Vital Signs: Last Vital Signs Pulse 88 06/18/24 15:47 BP 134/80 06/18/24 15:47 Pulse Ox 98 06/18/24 15:47 Oxygen Delivery Method Room Air 06/18/24 15:47 BMI result Body Mass Index 26.4 Vital signs reviewed Physical Examination CONSTITUITIONAL Patient alert and cooperative. Well appearing and in no apparent painful distress HEENT Conjunctiva and sclera clear. ?Pupils equal round and reactive to light. ?No lymphadenopathy. ? CHEST/RESPIRATORY SYSTEM Normal respiratory effort and able to speak in complete sentences. ?Clear to auscultation bilaterally. ?No crackles, rales, rhonchi, wheezes heard. CARDIAC SYSTEM Regular rate and rhythm. ?S1 and S2 heard no murmurs. ?Radial pulses intact bilaterally MSK Hands: ?Good boxcar weigher strength bilaterally. No deformities noted. ?No synovitis noted to the MCPs, PIPs or DIPs. Mild TTP over the Herbeden's nodes and PIPs. No TTP of MCPs Wrists: ?Full range of motion at the wrists without pain. ?No tenderness to palpation or synovitis noted to the wrists. Elbows: Full range of motion without pain. No tenderness, weakness, swelling, increased warmth or erythema. Shoulders: Full range of motion without pain. Mild TTP of the bilateral AC shoulder Hips: Full range of motion without pain. Hip bursa: No tenderness to palpation Knees: ?Full range of motion. ?No tenderness, swelling, increased warmth or erythema.?No effusion or crepitations Ankles: Full range of motion. ?No tenderness, swelling, increased warmth or erythema.? Feet: ?Negative squeeze test. ?No tenderness to palpation or swelling of the MTPs. Tender points:?No tenderness to palpation of the bilateral trapezius, supraspinatus, greater trochanters, anterior costochondral junctions, bilateral gluteal areas, bilateral suboccipital muscle insertions SKIN Skin intact without rashes. Hyperpigmentation noted to the right MTP likely post inflammatory Results Reviewed Results Reviewed: Laboratory Tests 11/02/22 04/17/24 12:08 11:31 WBC 7.7 RBC 5.26 Hgb 15.0 Hct 45.6 Plt Count 236 ESR 8 Sodium 140 Potassium 3.7 Chloride 106 Carbon Dioxide 27 BUN 12 Creatinine 0.76 AST 33 H ALT 45 H TB Test (T-Spot) Com Negative Assessment & Plan Assessment & Plan (1) Seropositive rheumatoid arthritis: Comment: ++RF ++CCP Onset late 2016 - migratory pattern Hydroxychloroquine use not possible due to retinal abnormalities Sulfasalazine started 08/22 - ineffective by 04/23 Methotrexate started 04/23 - stopped 01/24 due to LFT elelvation Humira started summer 2020: She did well but was frightened by COVID outbreak so she stopped that at the end of 2020. Humira restarted 2021 advanced to weekly 02/2023 Code(s): M05.9 - Rheumatoid arthritis with rheumatoid factor, unspecified Category: Medical Plan: #Seropositive RA Patient is a 63-year-old female with seropositive rheumatoid arthritis. No evidence of active synovitis today on examination. Can continue with Humira and low-dose prednisone Plan - Humira 40mg SC every week - Prednisone 2mg daily - Labs today: CBC, CMP, ESR, CRP, hepatitis panel, T spot - RTC 4 months - Labs before visit: CBC, CMP, ESR, CRP (2) Osteoarthritis of hands, bilateral: Code(s): M19.041 - Primary osteoarthritis, right hand; M19.042 - Primary osteoarthritis, left hand Category: Medical Qualifiers: Osteoarthritis type: primary Qualified Code(s): M19.041 - Primary osteoarthritis, right hand; M19.042 - Primary osteoarthritis, left hand Plan: #Bilateral hand OA Patient's pain is likely from her bilateral hand OA. Discussed with patient that osteoarthritis is not the same as rheumatoid arthritis and it is difficult to treat because the underlying mechanism is loss of cartilage and bone rubbing on bone. Recommended topical diclofenac 4 times a day Plan - Topical diclofenac 1% 4 times a day (3) Osteoporosis screening: Code(s): Z13.820 - Encounter for screening for osteoporosis Plan: #Osteoporosis screening Patient last DEXA 11/17/2022 which was normal. Given that she is on long-term steroids we will need to do a repeat DEXA this year. Plan - Order DEXA at next visit (4) Encounter for monitoring of adalimumab therapy: Code(s): Z51.81 - Encounter for therapeutic drug level monitoring; Z79.620 - long term care administrator (current) use of immunosuppressive biologic Category: Medical Plan: #Long-term Use of TNF Inhibitors: Humira Discussed with the patient the benefits and risks of TNF inhibitors for the management of the rheumatic condition Benefits include reduce pain, maintenance of remission and reduction of flares as well as ?progression of the disease Risks include injection sites/infusion reactions, serious infections (such as bacterial infections, opportunistic infections), malignancy, delaminating syndromes, autoimmune phenomena, CHF exacerbations, palmar plantar psoriasis and cytopenias Recommended rotating injection sites, and holding medication during and for up to 1 week after resolution of a febrile illness or open skin wound (5) On prednisone therapy: Code(s): Z79.52 - long term care administrator (current) use of systemic steroids Category: Medical Plan: #Long-term Use of Steroids Discussed with patient the risks and benefits of steroid for managing the rheumatic condition Benefits include: - Reduced pain, improved mobility, increased participation in activities, and decreased progression of disease Risks include: - GI upset, potential ultrasound worsening or formation (especially in patients > 65 years old), elevated blood pressure/worsening hypertension, elevated blood sugar/worsening diabetes control, worsening of bone density, elevated lipids/worsening triglycerides, cataract formation, weight gain Recommended using proton pump inhibitors (PPIs) for the duration of steroid use to reduce the risk of gastric ulcers and vitamin-D daily to reduce the risk of osteoporosis Labs checked: ?A1c, T spot, hepatitis-B and C serologies Pneumocystis jiroveci prophylaxis: ?Patient with risk factors including steroids greater than 50 mg for more than 30 days, age greater than 60 years, and lung involvement from underlying rheumatic disease requires prophylaxis and will be given so Plan I spent 35 minutes reviewing the record and labs, taking a history, examining the patient, discussing the treatment plan and documenting in the medical record Orders: Orders Comprehensive Met. Panel 4 Months M05.9 - Rheumatoid arthritis with rheumatoid factor, unspecified, Z51.81 - Encounter for therapeutic drug level monitoring, Z79.620 - [facility] (current) use of immunosuppressive biologic C Reactive Protein 4 Months M05.9 - Rheumatoid arthritis with rheumatoid factor, unspecified, Z51.81 - Encounter for therapeutic drug level monitoring, Z79.620 - [facility] (current) use of immunosuppressive biologic Complete Blood Count Auto Diff Today M05.9 - Rheumatoid arthritis with rheumatoid factor, unspecified, Z51.81 - Encounter for therapeutic drug level monitoring, Z79.620 - [facility] (current) use of immunosuppressive biologic C Reactive Protein Today M05.9 - Rheumatoid arthritis with rheumatoid factor, unspecified, Z51.81 - Encounter for therapeutic drug level monitoring, Z79.620 - long term care administrator (current) use of immunosuppressive biologic Complete Blood Count Auto Diff 4 Months M05.9 - Rheumatoid arthritis with rheumatoid factor, unspecified, Z51.81 - Encounter for therapeutic drug level monitoring, Z79.620 - [facility] (current) use of immunosuppressive biologic Erythrocyte Sedimentation Rate 4 Months M05.9 - Rheumatoid arthritis with rheumatoid factor, unspecified, Z51.81 - Encounter for therapeutic drug level monitoring, Z79.620 - long term care administrator (current) use of immunosuppressive biologic Erythrocyte Sedimentation Rate Today M05.9 - Rheumatoid arthritis with rheumatoid factor, unspecified, Z51.81 - Encounter for therapeutic drug level monitoring, Z79.620 - [facility] (current) use of immunosuppressive biologic Hepatitis A,B,C Profile Today M05.9 - Rheumatoid arthritis with rheumatoid factor, unspecified, Z51.81 - Encounter for therapeutic drug level monitoring, Z79.620 - [facility] (current) use of immunosuppressive biologic T Spot TB Today M05.9 - Rheumatoid arthritis with rheumatoid factor, unspecified, Z51.81 - Encounter for therapeutic drug level monitoring, Z79.620 - [facility] (current) use of immunosuppressive biologic Comprehensive Met. Panel Today M05.9 - Rheumatoid arthritis with rheumatoid factor, unspecified, Z51.81 - Encounter for therapeutic drug level monitoring, Z79.620 - [facility] (current) use of immunosuppressive biologic Medications: Refilled Humira(CF) Pen (adalimumab) 40 mg (0.4 mL) subcut QWEEK 4 ea 5RF NS M05.9 - Rheumatoid arthritis with rheumatoid factor, unspecified prednisone 2 mg (2 x 1 mg) PO DAILY 60 tabs 5RF M05.9 - Rheumatoid arthritis with rheumatoid factor, unspecified Coding Level of Care Code Est Pt Level 4 (23004) Complex EM visit Add On G2211 Diagnoses Seropositive rheumatoid arthritis M05.9 Primary osteoarthritis of both hands M19.041; M19.042 Osteoarthritis type: primary Osteoporosis screening Z13.820 Encounter for monitoring of adalimumab therapy Z51.81; Z79.620 On prednisone therapy Z79.52
[2024-06-18 15:47] VITALS: BP 134/80; PULSE 88; O2SAT 98; BMI 26.4
--- OUTSIDE RECORDS SUMMARY | 2024-06-18 16:24 | XMS_ITS | Encounter Summary ---
Author Organization [facility] Address [address] [place] [address] Care Team Providers Care Manager Mac Name Role Phone Adiel Price MD Primary Care Provider [phone] Reason for Visit * Reason Onset Date Comments Chills 06/02/2024 Covid positive Encounter Details Date Type Department Care Team (Late st Contact Info) Description 06/02/2024 Telephone Adult Medicine [address] [phone] Adiel Price MD [address] [place] [phone] Chills (Covid positive 05/30/24) Social History Tobacco Use Types Packs/Day Years Used Date Smoking Tobacco: Former Cigarettes 0.3 13.7 1 - 11/04/2019 Smokeless Tobacco: Never Alcohol Use Standard Drinks/Week Comments No 0 (1 standard drink = 0.6 oz pur e alcohol) Comments Unknown Sex and Gender Information Value Date Recorded Sex Assigned at Female 04/09/2024 4:21 PM EST Legal Sex Female 3:43 PM EST Gender Identity Female 04/09/2024 4:21 PM EST Sexual Orientation Straight 04/09/2024 4: 21 PM EST documented as of this encounter Progress Notes * Gisselle Paula RN - 06/02/2024 5:06 PM EST Pt is tested positive for covid 05/30 C/O chest wall tightness with deep breath and cough, denies SOB ( has no COPD/ asthma or any respiratory condition ) , able to speak in full sentences and has no audible wheezing, cough is productivefor Sputum, denies fever . able to take PO with no appetite , denies N/V/D, No abd pain, Advised home care following the Cough/ breathing problems Protocol. RN reinforced telephone consultation and advice. Reviewed with the patient the signs and symptoms to watch for that would require immediate attention. If symptoms change, worsen or increase in intensity, to call back immediately. Pt to use home care instructions per CDC and will call if develops new or worsening symptoms she will go to [place] for evaluation of chest tightness * Brooke Cervantes - 06/02/2024 4:03 PM EST PT is returning call back. * Gisselle Paula RN - 06/02/2024 2:43 PM EST Pt tested positive for covid 3 days ago she is requesting an inhaler for chest tightness, no hx of asthma , no inhaler in med hx Call to pt. Left message for pt to call triage * OLIVA beard - 06/02/2024 1:07 PM EST Pt had tested positive 05/30/24 and she is back at work today she is wondering if she ca get a inhaler to help relive her chest tightness. Pt still can't tast or smell anything but tother then tat sheis ok best number to call pt back on is [phone] documented in this encounter Plan of Treatment Upcoming Encounters Date Type Department Care Team (Late st Contact Info) Description 07/07/2024 3:00 PM EST Office Visit Adult Medicine [address] [phone] Adiel Price MD [address] [place] [phone] 08/22/2024 1:50 PM EDT Appointment Radiology Department - [address] [phone] documented as of this encounter Visit Diagnoses Not on filedocumented in this encounter Care Teams Manager Mac Relationship Specialty Start Date End Date Adiel Price MD [address] [place] [address] PCP - General Internal Medicine 12/16/21 documented as of this encounter
--- OUTSIDE RECORDS SUMMARY | 2024-06-18 16:24 | XMS_ITS | Clinical Summary ---
Author Organization 175 [facility] Address [address] [place] [address] Phone Care Team Providers Care Pigment Supplier Name Role Phone Adiel Price MD Primary Care Provider Allergies No known active allergies Medications atorvastatin (LIPITOR) 20 mg tablet Take 1 tablet (20 mg total) by mouth 1 (one) time each day. 4 Active famotidine (PEPCID) 20 mg tablet Take 1 tablet (20 mg total) by mouth 2 (two) times a day. 3 Active cholecalciferol (VITAMIN D-3) 50 mcg (2,000 unit) tablet Take 1 tablet (2,000 Units total) by mouth 1 (one) time each day. 3 Active adalimumab (Humira,CF, Pen) 40 mg/0.4 mL pen once a week. 3 Active cyclobenzaprine (FLEXERIL) 5 mg tablet Take 1 Tablet by mouth 3 times daily as needed for Muscle spasms for up to 30 doses. 2 Active predniSONE (DELTASONE) 1 mg tablet Route: Take 1 Tablet by mouth daily. - Or 2 Active acyclovir (ZOVIRAX) 400 mg tablet Take 1 tablet (400 mg total) by mouth 2 (two) times a day. 2 Active nystatin-triamc inolone (MYCOLOG II) ointment Apply a thin layer to affected area nightly x 2 weeks, then MWF Active aspirin 81 mg EC tablet TAKE 1 TABLET BY MOUTH EVERY DAY 90 tablet 1 4 Active aspirin 81 mg EC tablet Take 1 tablet (81 mg total) by mouth 1 (one) time each day. 4 Active amLODIPine (NORVASC) 5 mg tablet Take 1 tablet (5 mg total) by mouth 1 (one) time each day. 90 tablet 1 4 Active oxyCODONE-aceta minophen (PERCOCET) 5-325 mg per tablet Take 1 tablet by mouth 1 (one) time each day if needed for moderate pain. Max Daily Amount: 1 tablet 28 tablet 5 Active pantoprazole (PROTONIX) 40 mg EC tablet Take 1 tablet (40 mg total) by mouth 1 (one) time each day. 90 tablet 1 5 Active pantoprazole (PROTONIX) 40 mg EC tablet Take 1 tablet (40 mg total) by mouth 1 (one) time each day. 4 06/09/19 25 Discontinu ed(Reorder ) oxyCODONE-aceta minophen (PERCOCET) 5-325 mg per tablet Take 1 tablet by mouth 1 (one) time each day if needed for moderate pain. Max Daily Amount: 1 tablet 28 tablet 4 06/06/19 25 Discontinu ed(Reorder ) oxyCODONE-aceta minophen (PERCOCET) 5-325 mg per tablet Take 1 tablet by mouth 1 (one) time each day if needed for moderate pain. Max Daily Amount: 1 tablet 28 tablet 5 06/07/19 25 Discontinu ed(Reorder ) Active Problems Problem Noted Date Diagnosed Date Lichen sclerosus 02/05/2024 Mixed hyperlipidemia 06/05/2023 Primary hypertension 06/05/2023 TIA (transient ischemic attack) 06/05/2023 Left sided sciatica 12/16/2021 Over weight 12/16/2021 Gastritis with intestinal metaplasia of stomach 08/30/2021 Gastroesophageal reflux disease 05/30/2021 Seropositive rheumatoid arthritis 08/29/2017 Overview (02/05/2024): Onset late 2016 - migratory pattern Hydroxychloroquine use not possible due to retinal abnormalities Sulfasalazine started 08/22 - ineffective by 04/23 Methotrexate started 04/23 - soppted 01/24 due to LFT elelvation Humira tried - patient stopped due to anxiety about COVID Lumbar degenerative disc disease 04/04/2017 Overview (02/05/2024): With left sciatica Insomnia 05/19/2014 Fibroid uterus 07/27/2010 Encounters Date Type Department Care Team Description 06/02/2024 Telephone [place] [facility] [place] [address] [place] [phone] Adiel Price MD Chills (Covid positive 05/30/24) 04/17/2024 9:10 AM EST - 04/17/2024 11:59 PM EST Hospital Encounter [facility] Ultrasound [address] [place] [address] Fatty liver Discharge Disposition: Home or Self Care 03/26/2024 Telephone Gastroenterology - [place] 175 [facility] 175 [facility] [address] [place] [address] Jon Ribera, PA from Last 3 Months Immunizations Name Administration Dates Next Due Influenza Quadravalent, MDCK , 0.5ml, preservative free (Flucelvax) 6mo and older 02/21/2022,04/06/2021,01/26/2020,2018,01/24/2018 Influenza trivalent, with preservative (Fluzone; Afluria) 6mo and older 02/11/2023 Tdap Tetanus diptheria acell ular pertussis (Boostrix; Adacel) 7yo and older 04/07/2010 Surgical History Surgery Date Site/Laterality Comments OTHER SURGICAL HISTORY PROCEDURE: ---- OTHER ----; COMMENT: lararscopy-fibroid removed COLONOSCOPY 01/30/2013 PROCEDURE: HISTORICAL COLONOSCOPY; COMMENT: normal; repeat in ten yrs OTHER SURGICAL HISTORY 08/10/2021 PROCEDURE: OUTSIDE ENDOSCOPY; COMMENT: Normal duodenum. Erythematous mucosa in the greater curvature of the gastric body and antrum. Biopsy pending Medical History Medical History Date Comments Lumbar degenerative disc disease 04/04/2017 DX:Lumbar degenerative disc disease; COMMENT: With left sciatica Seropositive rheumatoid arth ritis (CMS/HCC) 08/29/2017 DX:Seropositive rheumatoid a rthritis (HCC); COMMENT: Onset late 2016 - migratory pattern Hydroxychloroquine use not possible due to retinal abnormalities Sulfasalazine started 08/22 Functional dyspepsia DX:Function al dyspepsia Esophageal reflux DX:Esophageal reflux Atypical chest pain DX:Atypical chest pain Elevated liver enzymes DX:Elevat ed liver enzymes Fatty liver DX:Fatty liver Hyperlipidemia DX:Hyperlipidemi a Stress at work DX:Stress at wor k Family History Medical History Relation Name Comments Diabetes Brother 1 Diabetes Father Other cancer Maternal Grandfather Other cancer Maternal Grandmother Arthritis Mother Heart failure Mother Stomach cancer Paternal Grandmother Arthritis Sister Heart failure Sister Colon cancer Neg Hx Ovarian cancer Neg Hx Relation Name Status Comments Brother 1 (Age 53) cva Brother 2 (Age 49) chf Brother 3 Alive cabg age 56 Father (Age 79) cva, htn,d m Maternal Grandfather Maternal Grandmother Mother (Age 72) chf,dm Paternal Grandmother Sister chf, dm Social History Tobacco Use Types Packs/Day Years [...] Orientation Straight 04/09/2024 4: 21 PM EST Obstetrics History Last Filed Vital Signs Vital Sign Reading Time Taken Comments Blood Pressure 158/69 2024 10:24 AM EDT Pulse 69 2024 10:24 AM EDT Temperature - - Respiratory Rate - - Oxygen Saturation - - Inhaled Oxygen Concentration - - Weight 71.7 kg (158 lb) 03/12/2024 9:45 AM EST Height 162.6 cm (5' 4.02 ) 03/12/2024 9:45 AM ES T Body Mass Index 27.11 03/12/2024 9:45 AM EST Plan of Treatment Upcoming Encounters Date Type Department Care Team (Late st Contact Info) Description 07/07/2024 3:00 PM EST Office Visit Adult Medicine [facility] [address] [phone] Adiel Price MD [address] [place] [address] 08/22/2024 1:50 PM EDT Appointment Radiology Department - [address] [phone] Health Maintenance Due Date Last Done Comments Pneumococcal Vaccine: Pediatrics (0 to 5 Years) and At-Risk Patients (6 to 64 Years) (1 of 2 - PCV) 1967 Hepatitis A Vaccines (1 of 2 - Risk 2-dose series) 02/13/1980 Zoster Vaccines (1 of 2) 2011 Hepatitis B Vaccines (1 of 3 - Risk 3-dose series) 2021 RSV Immunization Patients 60+ Years Old (1 - Risk 60-74 years 1-dose series) 2021 HIV Screening 04/15/2022 Social Influencers of Health Screening 04/15/2022 COVID-19 Vaccine ( season) 2024 02/11/2023, 09/22/2021, 12/22/2020, Additional history exists Influenza Vaccine (#1) 2024 , 02/21/2022, 04/06/2021, Additional history exists Hypertension/CHF/CAD Annual BMP Blood Test 08/22/2024 08/23/2023 Depression Screening 11/03/2024 11/04/2023 Cervical Cancer Screening: HPV 02/10/2025 02/11/2020 Breast Cancer Screening 08/14/2025 08/15/19 24, 08/02/2022, 05/02/2021, Additional history exists Cholesterol Screening (Lipid Panel) 08/22/2028 08/23/2023 Colorectal Cancer Screening: Colonoscopy 10/31/2033 11/01/2023 DTaP,Tdap,and Td Vaccines (3 - Td or Tdap) 01/10/2034 01/11/2024, 04/07/2010 Hepatitis C Screening Completed 04/07/2020 HIB Vaccines Aged Out No longer eligi ble based on patient's age to complete this topic HPV Vaccines Aged Out No longer eligi ble based on patient's age to complete this topic IPV Vaccines Aged Out No longer eligi ble based on patient's age to complete this topic MMR Vaccines Aged Out No longer eligi ble based on patient's age to complete this topic Meningococcal ACWY Vaccine Aged Out N o longer eligible based on patient's age to complete this topic RSV Immunization Patients Under 20 months Aged Out No longer eligible based on patient's age to complete this topic Varicella Vaccines Aged Out No longer eligible based on patient's age to complete this topic Procedures Procedure Name Priority Date/Time Associated Diagnosis Comments US ABDOMEN LIMITED Routine 04/17/2024 9: 39 AM EST Fatty liver DEPRESSION SCREENING Routine 11/04/2023 COLONOSCOPY Routine 11/01/2023 ANNUAL BMP BLOOD TEST Routine 08/23/2023 LIPID PANEL Routine 08/23/2023 SCREENING MAMMOGRAPHY BI 2-VIEW BREAST INC CAD Routine 08/15/2023 11:27 AM EDT Encounter for screening mammogram for malignant neoplasm of breast HEPATITIS C SCREENING Routine 04/07/2020 HPV Routine 02/11/2020 from Last 3 Months or Most Recently Relevant to Health Maintenance Results * US Abdomen Limited (04/17/2024 9:39 AM EST) Anatomical Region Laterality Modality Body Ultrasound 04/17/2024 2:02 PM EST Impressions 04/17/2024 2:08 PM EST Echogenic liver parenchyma suggesting steatosis. Small echogenic focus in the lower pole of the right kidney which could represent a nonobstructing calculus. -------- FINAL REPORT -------- Dictated By: Bennie Bledsoe Dictated Date: 04/17/2024 14:02 ET Assigned Physician: Bennie Bledsoe Reviewed and Electronically Signed By: Bennie Bledsoe Signed Date: 04/17/2024 14:08 ET Workstation ID: [id number] Transcribed By: Self Edit Transcribed Date: 04/17/2024 14:03 ET Narrative 04/17/2024 2:08 PM EST Right upper quadrant ultrasound, 04/17/2024. HISTORY: Fatty liver. COMPARISON: 04/10/2006. TECHNIQUE: Grayscale, color Doppler, and spectral Doppler ultrasound evaluation of the right upper quadrant of the abdomen. FINDINGS: LIVER: Echogenic parenchyma. ??No focal lesion. ??Normal flow in main portal vein. BILIARY: Normal appearance of the gallbladder and biliary tree. ??Negative sonographic Muñoz sign. PANCREAS: Visualized portions are normal. RIGHT KIDNEY: Normal size and echotexture. ??No hydronephrosis. ??There is a small echogenic focus with associated artifact in the lateral lower pole which could represent a small nonobstructing calculus. Procedure Note Bennie Bledsoe MD - 04/17/2024 Right upper quadrant ultrasound, 04/17/2024. HISTORY: Fatty liver. COMPARISON: 04/10/2006. TECHNIQUE: Grayscale, color Doppler, and spectral Doppler ultrasoundevaluation of the right upper quadrant of the abdomen. FINDINGS: LIVER: Echogenic parenchyma. No focal lesion. Normal flow in main portalvein. BILIARY: Normal appearance of the gallbladder and biliary tree. Negativesonographic Muñoz sign. PANCREAS: Visualized portions are normal. RIGHT KIDNEY: Normal size and echotexture. No hydronephrosis. There is asmall echogenic focus with associated artifact in the lateral lower polewhich could represent a small nonobstructing calculus. IMPRESSION: Echogenic liver parenchyma suggesting steatosis. Small echogenic focus in the lower pole of the right kidney which couldrepresent a nonobstructing calculus. -------- FINAL REPORT -------- Dictated By: Bennie Bledsoe Dictated Date: 04/17/2024 14:02 ET Assigned Physician: Bennie Bledsoe Reviewed and Electronically Signed By: Bennie Bledsoe Signed Date: 04/17/2024 14:08 ET Workstation ID: [id number] Transcribed By: Self Edit Transcribed Date: 04/17/2024 14:03 ET Jon CASSIDY IMG US PROCEDURES Final Result * Depression Screening (11/04/2023) Pathologist [facility] Depression Screening ABSTRACTED [facility] Provider HEALTH MAINTENANCE Final Result * Colonoscopy (11/01/2023) Pathologist [facility] Colonoscopy no interpretation , abstracted Anatomical Region Laterality Modality Other [facility] Provider HEALTH MAINTENANCE Final Result * Annual BMP Blood Test (08/23/2023) Pathologist [facility] Annual BMP Blood Test ABSTRACTED Result [facility] Provider [facility] Final Result * Lipid panel (08/23/2023) [facility] LDL/HDL Ratio 3 0 - 4 Triglycerides 103 0 - 150 mg/dL Cholesterol 122 0 - 200 mg/dL HDL 42 >=40 mg/dL LDL Cholesterol 60 0 - 100 mg/dL Blood Venous blood specimen / Unknown Result [facility] Provider LAB BLOOD ORDERABLES Janene l Result * SCREENING MAMMOGRAPHY BI 2-VIEW BREAST INC CAD (08/15/2023 11:27 AM EDT) Anatomical Region Laterality Modality Radiographic Sharon ging 08/02/2022 11:1 4 AM EDT Narrative 08/15/2023 1:11 PM EDT This is a summary report. The complete report is available in the patient's medical record. If you cannot access the medical record, please contact the sending organization for a detailed fax or copy. Full field digital screening tomosynthesis mammography, reviewed with CAD and compared to previous. The breasts are composed mostly of fatty tissue. ??No suspicious mass, architectural distortion or suspicious calcifications are identified. IMPRESSION: : No mammographic evidence of malignancy. BIRADS 1-Negative; N. 5 year breast cancer risk assessment 1.5 % Lifetime breast cancer risk assessment 6.5 % Breast cancer risk category Low (<15%) Procedure Note Caden Eubanks MD - 12/24/2023 This is a summary report. The complete report is available in thepatient's medical record. If you cannot access the medical record, pleasecontact the sending organization for a detailed fax or copy. Full field digital screening tomosynthesis mammography, reviewed with CADand compared to previous. The breasts are composed mostly of fatty tissue.No suspicious mass, architectural distortion or suspicious calcificationsare identified. IMPRESSION: : No mammographic evidence of malignancy. BIRADS 1-Negative; N. 5 year breast cancer risk assessment 1.5 % Lifetime breast cancer risk assessment 6.5 % Breast cancer risk category Low (<15%) Daryl CASSIDY IMG XR PROCEDURES Final Result * Hepatitis C Screening (04/07/2020) Hepatitis C Screening ABSTRACTED Historical Provider HEALTH MAINTENANCE Final Result * Cervical Cancer Screening: HPV (02/11/2020) Pathologist [facility] Cervical Cancer Screening: HPV negative,a bstracted Historical Provider HEALTH MAINTENANCE Final Result from Last 3 Months or Most Recently Relevant to Health Maintenance Insurance PLAN Care Teams Pigment Supplier Relationship Specialty Start Date End Date Adiel Price MD [address] [place] [address] PCP - General Internal Medicine 12/16/21
== END 2024-06-18 16:13 | disposition home or self-care (01) ==
PROVIDERS: PCP Internal Medicine; Visit Provider Student in an Organized Health Care Education/Training Program
DX: M05.79 Rheumatoid arthritis with rheumatoid factor of multiple sites without organ or systems involvement (principal); M19.041 Primary osteoarthritis, right hand; M19.042 Primary osteoarthritis, left hand; Z13.820 Encounter for screening for osteoporosis; Z51.81 Encounter for therapeutic drug level monitoring; Z79.620 Long term (current) use of immunosuppressive biologic; Z79.52 Long term (current) use of systemic steroids
CPT/HCPCS: 99214; G2211

== ENCOUNTER → 2024-06-18 15:37 | Outpatient (BNVA) | payer OTHER, SELFPAY | PROVIDERS: PCP Internal Medicine; Visit Provider Student in an Organized Health Care Education/Training Program | DX: M05.9 Rheumatoid arthritis with rheumatoid factor, unspecified (principal); M19.041 Primary osteoarthritis, right hand; M19.042 Primary osteoarthritis, left hand; Z13.820 Encounter for screening for osteoporosis; Z51.81 Encounter for therapeutic drug level monitoring; Z79.620 Long term (current) use of immunosuppressive biologic; Z79.52 Long term (current) use of systemic steroids | CPT/HCPCS: 99212 ==

== ENCOUNTER 2024-06-30 11:44 | Outpatient (REF) | payer OTHER, SELFPAY ==
[2024-06-30 12:12] LABS: MANUAL DIFF FLAG NO
[2024-06-30 12:19] LABS: Basophils Absolute Auto 0.1 X10*3/uL (0.0-0.2); Basophils Percent Auto 0.9 % (0-2); Eosinophils Absolute Auto 0.2 X10*3/uL (0.0-0.4); Eosinophils Percent Auto 2.2 % (0-4); Hematocrit 46.5 % (37.0-47.0); Hemoglobin 15.1 g/dl (12.0-16.0); Imm Gran Abs Auto 0.02 X10*3/uL (0.00-0.03); Imm Gran Pct Auto 0.2 % (0.0-0.4); Lymphocytes Absolute Auto 2.7 X10*3/uL (1.2-4.9); Lymphocytes Percent Auto 30.7 % (20-40); Mean Corpuscular HGB Conc 32.5 g/dl (31.0-35.0); Mean Corpuscular Hemoglobin 28.4 pg (27.0-33.0); Mean Corpuscular Volume 87.4 fL (80.0-98.0); Monocytes Absolute Auto 0.7 X10*3/uL (0.1-1.2); Monocytes Percent Auto 7.6 % (2-11); Neutrophils Absolute Auto 5.1 x10*3/uL (2.0-8.3); Neutrophils Percent Auto 58.4 % (45-73); Platelet Count 222 X10*3/uL (160-400); Red Blood Count 5.32 X10*6/uL (4.20-5.50); Red Cell Distribution Width 12.8 % (11.0-16.0); White Blood Count 8.7 X10*3/uL (4.8-10.8)
[2024-06-30 13:05] LABS: HBS Num1 1.36 mIU/mL (0-7.99); HBc Num1 0.18 S/CO (0.00-0.79); HBsAGNum1 0.31 S/CO (0.00-0.99); Hepatitis A Antibody IgM 0.25 Index (0-0.79); Hepatitis B Core Antibody Nonreactive (Nonreactive); Hepatitis B Surface Antigen Negative (Negative); ~HepC Num1 0.41 S/CO (0.00-0.79); ~Hepatitis A Antibody IgM Nonreactive (Nonreactive); ~Hepatitis B Surface Antibody NONREACTIVE (Nonreactive); ~Hepatitis C Antibody Nonreactive (Nonreactive)
[2024-06-30 13:06] LABS: Alanine Aminotransferase 41 U/L (0-31); Alkaline Phosphatase 131 U/L (39-117); Anion Gap 10 (12-20); Aspartate Amino Transferase 35 U/L (5-31); Bilirubin Total 0.6 mg/dL (0.0-1.0); Blood Urea Nitrogen 11 mg/dL (9-16); C Reactive Protein < 0.10 mg/dL (< or = 0.50); Calcium 9.4 mg/dL (8.4-10.2); Carbon Dioxide 30 mmol/L (22-29); Chloride 104 mmol/L (96-108); Erythrocyte Sedimentation Rate 11 MM/HR (0-20); Estimated Glomerular Filt Rate > 60; Glucose Random 110 mg/dL (60-115); Potassium 4.2 mmol/L (3.3-5.1); Sodium 140 mmol/L (135-145); Total Protein 8.4 g/dL (6.5-8.0)
--- OUTSIDE RECORDS SUMMARY | 2024-06-30 13:35 | XMS_ITS | Encounter Summary ---
Author Organization [facility] Address [address] [place] [address] Care Team Providers Care Mold Stamper And Repairer Name Role Phone Adiel Price MD Primary Care Provider [phone] Reason for Visit * Reason Onset Date Comments Chills 06/02/2024 Covid positive Encounter Details Date Type Department Care Team (Late st Contact Info) Description 06/02/2024 Telephone Adult Medicine [address] [phone] Adiel Price MD [address] [place] [phone] Chills (Covid positive 05/30/24) Social History Tobacco [...] or worsening symptoms [place] [facility] of [place] * Brooke [...] number to call pt back on is [phone] documented in this encounter Plan of Treatment Upcoming Encounters Date Type Department Care Team (Late st Contact Info) Description 07/07/2024 3:00 PM EST Office Visit Adult Medicine [address] [phone] Adiel Price MD [address] [place] [address] 07/22/2024 10:45 AM EDT Office Visit Orthopedic Surgery - [place] [address] [phone] Jonah Laird, DPGeni [address] [address] 08/22/2024 1:50 PM EDT Appointment Radiology Department - [address] [phone] documented as of this encounter Visit Diagnoses Not on filedocumented in this encounter Care Teams Mold Stamper And Repairer Relationship Specialty Start Date End Date Adiel Price MD [address] [place] [address] PCP - General Internal Medicine 12/16/21 documented as of this encounter
--- OUTSIDE RECORDS SUMMARY | 2024-06-30 13:35 | XMS_ITS | Clinical Summary ---
Author Organization 175 [facility] Address [address] [place] [address] Phone Care Team Providers Care Apprenticeship Representative Name Role Phone Adiel Price MD Primary Care Provider [phone] Allergies No known active allergies Medications atorvastatin [...] Care Team Description 06/02/2024 Telephone Adult Medicine [facility] [place] [address] [place] [address] Adiel Price MD Chills (Covid positive 05/30/24) 04/17/2024 9:10 AM EST - 04/17/2024 11:59 PM EST Hospital Encounter [facility] Ultrasound [address] [place] [address] Fatty liver Discharge Disposition: Home or Self Care from Last 3 Months Immunizations Name Administration [...] 3:00 PM EST Office Visit Adult Medicine [address] [phone] Adiel Price MD [address] [place] [address] 07/22/2024 10:45 AM EDT Office Visit Orthopedic Surgery - [place] [address] [phone] Jonah Laird, DPM [address] [address] 08/22/2024 1:50 PM EDT Appointment Radiology Department - [address] [phone] Health Maintenance Due Date Last Done Comments Hepatitis A Vaccines (1 of 2 - Risk 2-dose series) 02/13/1980 Pneumococcal Vaccine: 50+ Years (1 of 2 - PCV) 02/13/1980 Pneumococcal Vaccine: Pediatrics (0 to 5 Years) and At-Risk Patients (6 to 64 Years) (1 of 2 - PCV) 02/13/1980 Zoster Vaccines (1 of 2) 2011 [...] patient's age to complete this topic Meningococcal B Vacine Aged Out No lo nger eligible based on patient's age to complete [...] Signed Date: 04/17/2024 14:08 ET Workstation ID: [id number] Transcribed By: Self Edit Transcribed Date: 04/17/2024 [...] Signed Date: 04/17/2024 14:08 ET Workstation ID: [id number] Transcribed By: Self Edit Transcribed Date: 04/17/2024 14:03 ET Jon CASSIDY IMG US PROCEDURES Final Result * Depression Screening (11/04/2023) [facility] Depression Screening ABSTRACTED Result [facility] Provider HEALTH MAINTENANCE Final Result * Colonoscopy (11/01/2023) [facility] Colonoscopy no interpretation , abstracted Anatomical Region Laterality Modality Other Result [facility] Provider HEALTH MAINTENANCE Final Result * Annual BMP Blood Test (08/23/2023) Pathologist [facility] Annual BMP Blood Test ABSTRACTED Result [facility] Provider HEALTH MAINTENANCE Final Result * Lipid panel (08/23/2023) [facility] LDL/HDL Ratio 3 0 - 4 Triglycerides 103 0 - 150 mg/dL Cholesterol 122 0 - 200 mg/dL HDL 42 >=40 mg/dL LDL Cholesterol 60 0 - 100 mg/dL Blood Venous blood specimen / Unknown Result [facility] Provider LAB BLOOD ORDERABLES Janene l Result [...] C Screening (04/07/2020) Hepatitis C Screening ABSTRACTED Result [facility] Historical Provider HEALTH MAINTENANCE Final Result * Cervical Cancer Screening: HPV (02/11/2020) Pathologist [facility] Cervical Cancer Screening: HPV negative,a bstracted Historical Provider HEALTH MAINTENANCE Final Result from Last 3 Months or Most Recently Relevant to Health Maintenance Insurance HEALTH PLAN Care Teams Apprenticeship Representative Relationship Specialty Start Date End Date Adiel Price MD [address] [place] [address] PCP - General Internal Medicine 12/16/21
[2024-07-03 01:09] LABS: TS Negative Control Passed; TS Panel A 0; TS Panel B 0; TS Positive Control Passed; TSpotTB Negative (Negative)
== END 2024-06-30 11:45 | disposition home or self-care (01) ==
LOC: HO.LAB 11:44
PROVIDERS: PCP Internal Medicine; Visit Provider Student in an Organized Health Care Education/Training Program
DX: Z51.81 Encounter for therapeutic drug level monitoring (principal); M05.9 Rheumatoid arthritis with rheumatoid factor, unspecified; Z79.620 Long term (current) use of immunosuppressive biologic; Z11.59 Encounter for screening for other viral diseases; Z72.89 Other problems related to lifestyle
CPT/HCPCS: 36415; 80053; 85025; 85652; 86140; 86481; 86704; 86706; 86709; 86803; 87340

== ENCOUNTER 2024-08-12 08:10 | Outpatient (REF) | payer OTHER, SELFPAY ==
--- NOTE | ~2024-08-12 | US_ITS ---
EXAMINATION: US ABDOMEN COMPLETE WITH LIVER ELASTOGRAPHY HISTORY: K76.0 - Fatty (change of) liver, not elsewhere classified TECHNIQUE: Real-time grayscale ultrasound imaging of the abdomen was performed and images were reviewed. COMPARISON: There are no prior studies for comparison. FINDINGS: Liver: The right lobe of the liver measures 15.0 cm in size. The left lobe of the liver measures 10.4 cm in size. The liver demonstrates increased echotexture, consistent with steatosis. There is focal fatty sparing adjacent to the gallbladder. No focal mass or intrahepatic biliary ductal dilatation is identified. There is normal hepatopedal flow in the portal vein. Ultrasound elastography of the liver was performed with 10 separate measurements of the liver parenchyma with the patient in the supine position. Measurements were obtained approximately 2 cm below Milton's capsule and perpendicular to the capsule. Images are of satisfactory quality. The median shear wave velocity is 1.17 m/s. The interquartile range/median (IQR/median) is 0.09. Gallbladder and biliary tree: The gallbladder is unremarkable, without evidence of calculi, wall thickening, or pericholecystic fluid. There is no sonographic Muñoz sign. The common bile duct is normal in caliber measuring 3 mm. Kidneys: The right kidney is 10.3 cm in length. The left kidney measures 10.2 cm in length. The kidneys are unremarkable, without evidence of masses, hydronephrosis, or calculi. Pancreas: The pancreatic head, neck, and body are unremarkable. The pancreatic tail is obscured by bowel gas. Spleen: The spleen is normal in size and contour, measuring 8.2 cm in length. Abdominal aorta and inferior vena cava: The visualized portions of the abdominal aorta and inferior vena cava are normal in caliber. There is no free fluid in the abdomen. US/US abdomen comp w elastography IMPRESSION: Hepatomegaly and hepatic steatosis. The median shear wave velocity in the liver is 1.17 m/s, corresponding to a median liver stiffness of 4.2 kPa. The IQR/median value is 0.09. This is indicative of a quality data set. Findings are indicative of a normal elastography value with a low likelihood of severe fibrosis or cirrhosis. REFERENCE: Society of Radiologists in Ultrasound Liver Stiffness Thresholds (2020): LIVER STIFFNESS THRESHOLDS: *Shear wave velocity less than 1.3 m/s (Liver Stiffness equal or less than 5 kPa): High probability of being normal. *Shear wave velocity less than 1.7 m/s (Liver Stiffness less than 9 kPa): In the absence of other known clinical signs, rules out compensated advanced chronic liver disease. *Shear wave velocity between 1.7-2.1 m/s (Liver Stiffness 9-13 kPa): Suggestive of compensated advanced chronic liver disease but need further test for confirmation. *Shear wave velocity between 2.1-2.4 m/s (Liver Stiffness 13-17 kPa): Rules in compensated advanced chronic liver disease. *Shear wave velocity greater than 2.4 m/s (Liver Stiffness over 17 kPa): Suggestive of clinically significant portal hypertension. QUALITY OF DATA SET: *IQR/Median value equal or less than 0.15 implies a quality data set. *IQR/Median value over 0.15 implies a poor quality data set. SIGNIFICANT CHANGE FROM PRIOR EXAM: Significant change if liver stiffness measurement is 10% or greater from prior exam. OTHER CONSIDERATIONS: The stage of liver fibrosis may be overestimated in the setting of acute hepatitis, liver inflammation, elevated liver function tests, hepatic vascular congestion, obstructive cholestasis, non-fasting state, and infiltrative diseases such as amyloidosis and lymphoma. In some patients with NAFLD, the liver stiffness thresholds for compensated advanced chronic liver disease may be lower. In causes other than viral hepatitis and NAFLD, liver stiffness thresholds are not well established. Electronically signed by: Glen Botello MD 08/12/2024 08:59 AM EDT
--- OUTSIDE RECORDS SUMMARY | 2024-08-12 08:22 | XMS_ITS | Clinical Summary ---
Author Organization [facility] Address [address] [place] [address] Phone Care Team Providers Care Inspector Optical Instrument Name Role Phone Adiel Price MD Primary Care Provider [phone] Allergies No known active allergies Medications cholecalcifer ol (VITAMIN D-3) 50 mcg (2,000 unit) tablet Take 1 tablet (2,000 Units total) by mouth 1 (one) time each day. 023 Active adalimumab (Humira,CF, Pen) 40 mg/0.4 mL pen 023 Active predniSONE (DELTASONE) 1 mg tablet Route: Take 1 Tablet by mouth daily. - Or 022 Active nystatin-tria mcinolone (MYCOLOG II) ointment Apply a thin layer to affected area nightly x 2 weeks, then MWF Active aspirin 81 mg EC tablet TAKE 1 TABLET BY MOUTH EVERY DAY 90 tablet 1 024 Active amLODIPine (NORVASC) 5 mg tablet Take 1 tablet (5 mg total) by mouth 1 (one) time each day. 90 tablet 1 024 Active pantoprazole (PROTONIX) 40 mg EC tablet Take 1 tablet (40 mg total) by mouth 1 (one) time each day. 90 tablet 1 025 Active carbamide peroxide (DEBROX) 6.5 % otic solution Administer 5-10 drops into each ear 2 (two) times a day. 15 mL 025 Active venlafaxine XR (EFFEXOR-XR) 37.5 mg 24 hr capsule Take 1 capsule (37.5 mg total) by mouth 1 (one) time each day. Do not crush or chew. 30 each 3 025 Active tiZANidine (ZANAFLEX) 2 mg tablet Take 1 tablet (2 mg total) by mouth at bedtime as needed for muscle spasms. 30 tablet 2 025 Active atorvastatin (LIPITOR) 20 mg tablet Take 1 tablet (20 mg total) by mouth 1 (one) time each day. 90 tablet 1 025 Active oxyCODONE-laura taminophen (PERCOCET) 5-325 mg per tablet Take 1 tablet by mouth 1 (one) time each day if needed for moderate pain. Max Daily Amount: 1 tablet 28 tablet Active atorvastatin (LIPITOR) 20 mg tablet Take 1 tablet (20 mg total) by mouth 1 (one) time each day. 024 2024 Discontinued(R eorder) valACYclovir (VALTREX) 500 mg tablet Take 1 tablet (500 mg total) by mouth 2 (two) times a day. FOR GENITAL HERPES FLARE UP 10 each 2 025 2024 Discontinued oxyCODONE-laura taminophen (PERCOCET) 5-325 mg per tablet Take 1 tablet by mouth 1 (one) time each day if needed for moderate pain. Max Daily Amount: 1 tablet 28 tablet 025 2024 Discontinued(R eorder) predniSONE (DELTASONE) 20 mg tablet Take 2 tablets (40 mg total) by mouth See administration instructions for 3 days, THEN 1 tablet (20 mg total) See administration instructions for 4 days. 10 tablet 025 2024 Active Problems Problem Noted Date Diagnosed Date VBI (vertebrobasilar insufficiency) 07/06/2024 Transaminitis 07/06/2024 Lichen sclerosus 02/05/2024 Mixed hyperlipidemia 06/05/2023 Primary [...] Encounters Date Type Department Care Team Description 07/17/2024 10:55 AM EDT - 07/17/2024 11:59 PM EDT Hospital Encounter XRAY - [address] [phone] Cervicalgia; Cervicocranial syndrome; Other spondylosis, cervical region Discharge Disposition: Home or Self Care 07/17/2024 10:30 AM EDT - 07/17/2024 11:59 PM EDT Hospital Encounter Radiology Department - [address] [phone] Goiter Discharge Disposition: Home or Self Care 07/07/2024 3:00 PM EST Office Visit Adult [address] [phone] Adiel Price MD Physical exam (Primary Dx); Mixed hyperlipidemia; Primary hypertension; Transaminitis; VBI (vertebrobasilar insufficiency); TIA (transient ischemic attack); Seropositive rheumatoid arthritis (CMS/HCC); Degeneration of intervertebral disc of lumbar region with discogenic back pain; Spondylosis of cervical region without myelopathy or radiculopathy; Bilateral impacted cerumen; Anxiety and depression; Goiter; Screening for diabetes mellitus (DM); Other chronic pain 06/02/2024 Telephone Adult [address] [phone] Adiel Price MD Chills (Covid positive 05/30/24) from Last 3 Months Immunizations Name Administration Dates Next Due Influenza Quadravalent, MDCK , 0.5ml, preservative free (Flucelvax) 6mo and older 02/21/2022,04/06/2021,01/26/2020,2018,01/24/2018 Influenza trivalent, with preservative (Fluzone; Afluria) 6mo and older 02/11/2023 Influenza, Unspecified 12/17/2023 Pneumococcal conjugate 20 va lent (Prevnar 20, PCV 20) 2mo and older 07/07/2024 Tdap Tetanus diptheria acell ular pertussis (Boostrix; Adacel) 7yo and older 01/11/2024,04/07/2010 Surgical History Surgery Date Site/Laterality Comments OTHER [...] ritis (CMS/HCC) 08/29/2017 DX:Seropositive rheumatoid a rthritis ([facility]); COMMENT: Onset late 2016 - migratory pattern [...] History Relation Name Comments Diabetes Brother 1 Heart failure Brother 1 Diabetes Father Other cancer Maternal [...] 13.7 1 - 11/04/2019 Smokeless Tobacco: Never Tobacco Cessation:Counseling Given: Not Answered Alcohol Use Standard Drinks/Week Comments No 0 (1 standard drink = 0.6 oz pur e alcohol) Comments No Sex and Gender Information Value Date Recorded Sex Assigned at Female 04/09/2024 4:21 PM EST Legal Sex Female 3:43 PM EST Gender Identity Female 04/09/2024 4:21 PM EST Sexual Orientation Straight 04/09/2024 4: 21 PM EST Obstetrics History Last Filed Vital Signs Vital Sign Reading Time Taken Comments Blood Pressure 124/70 07/07/2024 2:49 PM EST Pulse 76 07/07/2024 2:49 PM EST Temperature 36.6 ??C (97.8 ??F) 07/07/2024 2:49 PM ES T Respiratory Rate 16 07/07/2024 2:49 PM EST Oxygen Saturation 97% 07/07/2024 2:49 PM EST Inhaled Oxygen Concentration - - Weight 69.4 kg (153 lb) 07/07/2024 2:49 PM EST Height 162.6 cm (5' 4 ) 07/07/2024 2:49 PM EST Body Mass Index 26.26 07/07/2024 2:49 PM EST Plan of Treatment Upcoming Encounters Date Type Department Care Team (Late st Contact Info) Description 08/22/2024 1:50 PM EDT Appointment Radiology Department [address] [phone] Health Maintenance Due Date Last Done Comments Hepatitis A Vaccines (1 of 2 - Risk 2-dose series) 02/13/1980 Zoster Vaccines (1 of 2) 2011 Hepatitis B Vaccines (1 of 3 - Risk 3-dose series) 2021 RSV Immunization Adult Patients (1 - Risk 60-74 years 1-dose series) 2021 HIV Screening 04/15/2022 Social Influencers of Health Screening 04/15/2022 COVID-19 Vaccine ( season) 2024 02/11/2023, 09/22/2021, 12/22/2020, Additional history exists Depression Screening 11/03/2024 11/04/2023 Cervical Cancer Screening: HPV 02/10/2025 02/11/2020 Hypertension/CHF/CAD Annual BMP Blood Test 07/08/2025 07/08/2024, 08/23/2023 Breast Cancer Screening 08/14/2025 08/15/19 24, 08/02/2022, 05/02/2021, Additional history exists Cholesterol Screening (Lipid Panel) 07/08/2029 07/08/2024, 08/23/2023 Colorectal Cancer Screening: Colonoscopy 10/31/2033 11/01/2023 DTaP,Tdap,and Td Vaccines (3 - Td or Tdap) 01/10/2034 01/11/2024, 04/07/2010 Hepatitis C Screening Completed 04/07/2020 Influenza Vaccine Completed 12/17/2023, , 02/21/2022, Additional history exists Pneumococcal Vaccine: 50+ Years Completed 07/07/2024 Pneumococcal Vaccine: Pediatrics (0 to 5 Years) and At-Risk Patients (6 to 64 Years) Completed 07/07/2024 HIB Vaccines Aged Out No longer eligi [...] age to complete this topic Meningococcal B Vaccine Aged Out No l onger eligible based on patient's age to complete this topic RSV Immunization Patients Under 20 months Aged Out No longer eligible based on patient's age to complete this topic Varicella Vaccines Aged Out No longer eligible based on patient's age to complete this topic Procedures Procedure Name Priority Date/Time Associated Diagnosis Comments US HEAD NECK SOFT TISSUE Routine 07/17/2024 11:11 AM EDT Goiter XR CERVICAL SPINE 4-5 VIEWS Routine 07/17/2024 11:02 AM EDT Cervicalgia Cervicocranial syndrome Other spondylosis, cervical region CBC WITH AUTO DIFFERENTIAL Routine 07/08/2024 12:22 PM EST Fatty liver CBC AND DIFFERENTIAL Routine 07/08/2024 12:22 PM EST Fatty liver COMPREHENSIVE METABOLIC PANEL Routine 07/08/2024 12:22 PM EST Fatty liver HEMOGLOBIN A1C Routine 07/08/2024 12:22 PM EST Screening for diabetes mellitus (DM) LIPID PANEL WITH REFLEX TO DIRECT LDL Routine 07/08/2024 12:22 PM EST Mixed hyperlipidemia THYROID STIMULATING HORMONE WITH REFLEX TO FREE T4 AND FREE T3 Routine 07/08/2024 12:22 PM EST Goiter DRUG ABUSE SCREEN EXPANDED WITH REFLEX CONFIRMATION, URINE Routine 07/08/2024 12:22 PM EST Other chronic pain LIVER FIBROSIS, FIBROTEST-ACTITEST PANEL Routine 07/08/2024 12:22 PM EST Primary hypertension Mixed hyperlipidemia Over weight Transaminitis Lichen sclerosus Uterine leiomyoma, unspecified location Gastroesophageal reflux disease, unspecified whether esophagitis present Gastritis with intestinal metaplasia of stomach EXTERNAL CLINICAL LAB 06/30/2024 DEPRESSION SCREENING Routine 11/04/2023 COLONOSCOPY Routine 11/01/2023 SCREENING MAMMOGRAPHY BI 2-VIEW BREAST INC CAD Routine 08/15/2023 11:27 AM EDT Encounter for screening mammogram for malignant neoplasm of breast HEPATITIS C SCREENING Routine 04/07/2020 HPV Routine 02/11/2020 from Last 3 Months or Most Recently Relevant to Health Maintenance Results * US Head Neck Soft Tissue (07/17/2024 11:11 AM EDT) Anatomical Region Laterality Modality Head and Neck Ultrasound 07/17/2024 12:4 1 PM EDT Impressions 07/17/2024 12:42 PM EDT Heterogeneous echotexture of the thyroid gland which is normal in size. No discrete thyroid nodules are identified. -------- FINAL REPORT -------- Dictated By: Fay Peterson Dictated Date: 07/17/2024 12:41 ET Assigned Physician: Fay Peterson Reviewed and Electronically Signed By: Fay Peterson Signed Date: 07/17/2024 12:42 ET Workstation ID: [id number] Transcribed By: Self Edit Transcribed Date: 07/17/2024 12:41 ET Narrative 07/17/2024 12:42 PM EDT US HEAD NECK SOFT TISSUE THYROID SOFT TISSUES NECK HISTORY: ??Goiter. Rule out thyroid nodule. FINDINGS: ??The thyroid gland is heterogeneous in echotexture and demonstrates normal vascularity by color Doppler interrogation. No thyroid nodules are seen. The right lobe of the thyroid measures 3.9 x 1.1 x 1.5 cm. ??The left lobe of the thyroid measures 3.9 x 1.2 x 1.5 cm. ??The thyroid isthmus measures 2 mm in thickness. Procedure Note Fay Peterson MD - 07/17/2024 US HEAD NECK SOFT TISSUE THYROID SOFT TISSUES NECK HISTORY: Goiter. Rule out thyroid nodule. FINDINGS: The thyroid gland is heterogeneous in echotexture anddemonstrates normal vascularity by color Doppler interrogation. No thyroid nodules are seen. The right lobe of the thyroid measures 3.9 x1.1 x 1.5 cm. The left lobe of the thyroid measures 3.9 x 1.2 x 1.5 cm.The thyroid isthmus measures 2 mm in thickness. IMPRESSION: Heterogeneous echotexture of the thyroid gland which is normal in size. Nodiscrete thyroid nodules are identified. -------- FINAL REPORT -------- Dictated By: Fay Peterson Dictated Date: 07/17/2024 12:41 ET Assigned Physician: Fay Peterson Reviewed and Electronically Signed By: Fay Peterson Signed Date: 07/17/2024 12:42 ET Workstation ID: [id number] Transcribed By: Self Edit Transcribed Date: 07/17/2024 12:41 ET us Adiel Price MD IMG US PROCEDURES Final Res ult * XR Cervical Spine 4-5 Views (07/17/2024 11:02 AM EDT) Anatomical Region Laterality Modality Spine, C-spine Radiographic Sharon ging 07/17/2024 11:3 9 PM EDT Impressions 07/17/2024 11:44 PM EDT Multilevel degenerative changes with multiple levels of bilateral neural foraminal encroachment. ??No significant interval change has occurred. POS - [id number] -------- FINAL REPORT -------- Dictated By: Amisha Webb Dictated Date: 07/17/2024 23:39 ET Assigned Physician: Amisha Webb Reviewed and Electronically Signed By: Amisha Webb Signed Date: 07/17/2024 23:44 ET Workstation ID: [id number] Transcribed By: Self Edit Transcribed Date: 07/17/2024 23:39 ET Narrative 07/17/2024 11:44 PM EDT EXAM: Cervical spine x-ray HISTORY: Neck pain. ??No known trauma. COMPARISON: 07/17/2022 FINDINGS: 4 views performed. Cervical spine is visualized through C7 on the lateral projection. No compression deformities. Chronic moderately severe disc space narrowing at C5-6, mild at C6-7, and minimal at C3-4 and C4-5. ??Endplate spurring from C3-4 through C6-7. ??Multilevel uncovertebral spurring and facet arthropathy. ??Bilateral neural foraminal encroachment again noted at C3-4 through C6-7. Atlantoaxial distance is within normal limits. ??No abnormal thickening of the prevertebral soft tissues. Procedure Note Amisha Webb MD - 07/17/2024 EXAM: Cervical spine x-ray HISTORY: Neck pain. No known trauma. COMPARISON: 07/17/2022 FINDINGS: 4 views performed. Cervical spine is visualized through C7 on the lateral projection. Nocompression deformities. Chronic moderately severe disc space narrowing at C5-6, mild at C6-7, andminimal at C3-4 and C4-5. Endplate spurring from C3-4 through C6-7.Multilevel uncovertebral spurring and facet arthropathy. Bilateral neuralforaminal encroachment again noted at C3-4 through C6-7. Atlantoaxial distance is within normal limits. No abnormal thickening ofthe prevertebral soft tissues. IMPRESSION: Multilevel degenerative changes with multiple levels of bilateral neuralforaminal encroachment. No significant interval change has occurred. POS - [id number] -------- FINAL REPORT -------- Dictated By: Amisha Webb Dictated Date: 07/17/2024 23:39 ET Assigned Physician: Amisha Webb Reviewed and Electronically Signed By: Amisha Webb Signed Date: 07/17/2024 23:44 ET Workstation ID: [id number] Transcribed By: Self Edit Transcribed Date: 07/17/2024 23:39 ET Paul Bravo DO IMG XR PROCEDURES Final Result * Thyroid stimulating hormone with reflex to free t4 and free t3 (07/08/2024 12:22 PM EST) TSH 0.88 0.40 - 4.00 mcIU/mL LAB CHEMISTRY METHOD 07/08/2024 3:58 PM EST [facility] Blood Venous blood specimen / Unknown Venipuncture / Unknown 07/08/2024 12:22 PM EST 07/08/2024 12:22 PM EST Adiel Price MD LAB BLOOD ORDERABLES Final Result [facility] [address] [place] [address], [place] [phone] * Drug abuse screen expanded with reflex confirmation, urine (07/08/2024 12:22 PM EST) Amphetamine Screen, Ur Negative Negative LAB CHEMISTRY METHOD 07/08/2024 4:03 PM EST [facility] Comment:Certain OTC medicati ons containing ephedrine, phenylephrine, pseudoephedrine and phenylpropanolamine can cause false positive results. Barbiturate Screen, Ur Negative Negative LAB CHEMISTRY METHOD 07/08/2024 4:03 PM EST [facility] Benzodiazepine Screen, Ur Negative Negative LAB CHEMISTRY METHOD 07/08/2024 4:[address] [facility] Cocaine Screen, Ur Negative Negative LAB CHEMISTRY METHOD 07/08/2024 4:[address] [facility] Opiate Screen, Ur Negative Negative LAB CHEMISTRY METHOD 07/08/2024 4:[address] [facility] Cannabinoid (THC) Screen, Ur Negative Negative LAB CHEMISTRY METHOD 07/08/2024 4:[address] [facility] Comment:Specimens from patie nts taking pantoprazole sodium (Protonix) have been shown to produce false positive results. Fentanyl, Ur Negative Negative LAB CHEMISTRY METHOD 07/08/2024 4:[address] [facility] Oxycodone Screen, Ur Negative Negative LAB CHEMISTRY METHOD 07/08/2024 4:[address] [facility] Urine Urine specimen obtained by clean catch procedure / Unknown Non-blood Collection / Unknown 07/08/2024 12:22 PM EST 07/08/2024 12:22 PM EST [facility] - 07/08/2024 4:03 PM EST Assay cutoffs: Amphetamines ? 1000 ng/mL Barbiturates ?200 ng/mL Benzodiazepines ?? 200 ng/mL Cocaine ? 300 ng/mL Fentanyl ?1 ng/mL Opiates ? 300 ng/mL Oxycodone ? 100 ng/mL THC ?50 ng/mL Semi-quantitative assay for screening purposes only. Unconfirmed screening result should not be used for non-medical purposes. *POSITIVE RESULTS ARE AUTOMATICALLY SENT FOR ALTERNATE METHOD CONFIRMATION* Adiel Price MD LAB URINE ORDERABLES Final Result [facility] [address] [place] [address], [place] [phone] * Lipid panel with reflex to direct LDL (07/08/2024 12:22 PM EST) Cholesterol 171 0 - 200 mg/dL LAB CHEMISTRY METHOD 07/08/2024 3:50 PM EST [facility] Triglycerides 62 0 - 150 mg/dL LAB CHEMISTRY METHOD 07/08/2024 3:50 PM EST [facility] HDL 65 >=40 mg/dL LAB CHEMISTRY METHOD 07/08/2024 3:50 PM EST [facility] LDL Calculated 94 0 - 100 mg/dL LAB CHEMISTRY METHOD 07/08/2024 3:50 PM EST [facility] VLDL Cholesterol Kd 12.4 mg/dL LAB CHEMISTRY METHOD 07/08/2024 3:50 PM EST [facility] Non HDL Chol. (LDL+VLDL) 106 <145 mg/dL LAB CHEMISTRY METHOD 07/08/2024 3:50 PM EST [facility] Chol/HDL Ratio 2.6 0.0 - 4.4 LAB CHEMISTRY METHOD 07/08/2024 3:50 PM EST [facility] Blood Venous blood specimen / Unknown Venipuncture / Unknown 07/08/2024 12:22 PM EST 07/08/2024 12:22 PM EST Adiel Price MD LAB BLOOD ORDERABLES Final Result [facility] [address] [place] [address], [place] [phone] * Liver fibrosis, fibrotest-actitest panel (07/08/2024 12:22 PM EST) Fibrosis Score 0.28 07/16/2024 1:39 AM EDT [facility] Fibrosis Stage F1 07/16/2024 1:39 AM EDT [facility] Fibrosis Interpretation SEE NOTE 07/16/2024 1:39 AM EDT [facility] Comment: minimal fibrosis Fibro Test Score (f) ??Metavir Score ??f>=0 and f<=0.21 : F0 (no fibrosis) f>0.21 and f<=0.27 : F0-F1 (no fibrosis) f>0.27 and f<=0.31 : F1 (minimal fibrosis) f>0.31 and f<=0.48 : F1-F2 (minimal fibrosis) f>0.48 and f<=0.58 : F2 (moderate fibrosis) f>0.58 and f<=0.72 : F3 (advanced fibrosis) f>0.72 and f<=0.74 : F3-F4 (advanced fibrosis) f>0.74 and f<=1.00 : F4 (severe fibrosis) Necroinflammat Activity Score 0.13 07/16/2024 1:39 AM EDT [facility] Necroinflammat Activity Grade A0 07/16/2024 1:39 AM EDT [facility] Necroinflammat Interpretation SEE NOTE 07/16/2024 1:39 AM EDT [facility] Comment: no activity ActiTest Score (a) ?Metavir Score ??a>=0 and a<=0.17 : A0 (no activity) a>0.17 and a<=0.29 : A0-A1 (no activity) a>0.29 and a<=0.36 : A1 (minimal activity) a>0.36 and a<=0.52 : A1-A2 (minimal activity) a>0.52 and a<=0.60 : A2 (significant activity) a>0.60 and a<=0.62 : A2-A3 (significant activity) a>0.62 and a<=1.00 : A3 (severe activity) Bilirubin Total 0.6 0.2 - 1.2 mg/dL 07/16/2024 1:39 AM EDT [facility] Gamma Glutamyl Transferase (GGT) 42 3 - 65 U/L 07/16/2024 1:39 AM EDT [facility] Alanine Aminotransferase (ALT) 28 6 - 29 U/L 07/16/2024 1:39 AM EDT [facility] [id number] n 253 106 - 279 mg/dL 07/16/2024 1:39 AM EDT [facility] Haptoglobin 164 43 - 212 mg/dL 07/16/2024 1:39 AM EDT [facility] Apolipoprotein A1 178 101 - 198 mg/dL 07/16/2024 1:39 AM EDT [facility] Reference ID [id number] 07/16/2024 1:39 AM EDT [facility] Footnote SEE NOTE 07/16/2024 1:39 AM EDT [facility] Comment: The reliability of results is dependent on compliance with the preanalytical and analytical conditions recommended by [employer]. The tests have to be deferred for: acute hemolysis, acute hepatitis, acute inflammation, extra hepatic cholestasis. The advice of a specialist should be sought for interpretation in chronic hemolysis and Gilbert's syndrome. The test interpretation is not validated in liver transplant patients. Isolated extreme values of one of the components should lead to caution in interpreting the results. In case of discordance between a biopsy result and a test, it is recommended to seek the advice of a specialist. The causes of these discordances could be due to a flaw of the test or to a flaw in the biopsy: i.e. a liver biopsy has a 33% variability rate for one fibrosis stage. FibroTest is interpretable for chronic hepatitis B and C, alcoholic and non alcoholic steatosis. ActiTest is interpretable for chronic hepatitis B and C. The performance characteristics have been determined by [facility]. It has not been cleared or approved by the U.S. Food and Drug Administration. Performance characteristics refer to the analytical performance of the test. [employer], [employer], the associated logo, [employer] and all associated [employer] hamm are the registered trademarks of [employer]. All third republican hamm - (R) and (TM) - are the property of their respective owners. (C) 5907-8733 [employer]. All rights reserved. Test Performed at: [facility] [address] [place] [address], [place] ??[id number] ? I Joshua PERES, PhD, VERN Blood Venous blood specimen / Unknown Venipuncture / Unknown 07/08/2024 12:22 PM EST 07/08/2024 12:22 PM EST us Jon CASSIDY LAB BLOOD ORDERABLES Final Resu lt DIANA MCCLELLAND [address] [place] [address] * (ABNORMAL) CBC auto differential (07/08/2024 12:22 PM EST) Pathologist [facility] WBC 14.2(H) 4.8 - 10.8 K/mcL LAB HEMETOLOGY METHOD 07/08/2024 3:[address] [facility] RBC 5.70(H) 3.80 - 4.80 M/mcL LAB HEMETOLOGY METHOD 07/08/2024 3:[address] [facility] Hemoglobin 16.4(H) 11.5 - 16.0 g/dL LAB HEMETOLOGY METHOD 07/08/2024 3:[address] [facility] Hematocrit 50.3(H) 35.0 - 47.0 % LAB HEMETOLOGY METHOD 07/08/2024 3:[address] [facility] MCV 87.9 79.0 - 98.0 FL LAB HEMETOLOGY METHOD 07/08/2024 3:[address] [facility] MCH 28.7 27.0 - 32.0 pcg LAB HEMETOLOGY METHOD 07/08/2024 3:[address] [facility] MCHC 32.6 32.0 - 37.0 g/dL LAB HEMETOLOGY METHOD 07/08/2024 3:[address] [facility] RDW 12.6 11.0 - 15.0 % LAB HEMETOLOGY METHOD 07/08/2024 3:[address] [facility] Platelets 286 130 - 400 K/mcL LAB HEMETOLOGY METHOD 07/08/2024 3:[address] [facility] MPV 12.2(H) 7.0 - 11.0 FL LAB HEMETOLOGY METHOD 07/08/2024 3:[address] [facility] NRBC 0.0 <1.0 % LAB HEMETOLOGY METHOD 07/08/2024 3:[address] [facility] NRBC Absolute 0.00 <0.10 K/mcL LAB HEMETOLOGY METHOD 07/08/2024 3:[address] [facility] Neutrophils Relative 84.7 % LAB HEMETOLOGY METHOD 07/08/2024 3:[address] [facility] Lymphocytes Relative 13.3 % LAB HEMETOLOGY METHOD 07/08/2024 3:[address] [facility] Monocytes Relative 1.3 % LAB HEMETOLOGY METHOD 07/08/2024 3:[address] [facility] Eosinophils Relative 0.0 % LAB HEMETOLOGY METHOD 07/08/2024 3:[address] [facility] Basophils Relative 0.1 % LAB HEMETOLOGY METHOD 07/08/2024 3:[address] [facility] Immature Granulocytes Relative 0.6 % LAB HEMETOLOGY METHOD 07/08/2024 3:[address] [facility] Neutrophils Absolute 12.05(H) 1.50 - 7.00 K/mcL LAB HEMETOLOGY METHOD 07/08/2024 3:[address] [facility] Lymphocytes Absolute 1.89 1.00 - 5.00 K/mcL LAB HEMETOLOGY METHOD 07/08/2024 3:[address] [facility] Monocytes Absolute 0.18(L) 0.20 - 1.00 K/mcL LAB HEMETOLOGY METHOD 07/08/2024 3:[address] [facility] Eosinophils Absolute 0.00 0.00 - 0.50 K/mcL LAB HEMETOLOGY METHOD 07/08/2024 3:53 PM EST [facility] Basophils Absolute 0.02 0.00 - 0.20 K/[facility] LAB HEMETOLOGY METHOD 07/08/2024 3:53 PM EST [facility] Immature Granulocytes Absolute 0.08(H) 0.00 - 0.03 K/[facility] LAB HEMETOLOGY METHOD 07/08/2024 3:53 PM EST [facility] Blood Venous blood specimen / Unknown Venipuncture / Unknown 07/08/2024 12:22 PM EST 07/08/2024 12:22 PM EST us Jon CASSIDY LAB BLOOD ORDERABLES Final Resu lt Performing Organization Address City/[facility]/ZIP Co de Phone Number [facility] [address] [place] [address], [place] [phone] * Hemoglobin A1c (07/08/2024 12:22 PM EST) Hemoglobin A1C 6.2 <6.5 % LAB CHEMISTRY METHOD 07/08/2024 8:54 PM EST [facility] Mean Bld Glu Estim. 131 mg/dL LAB CHEMISTRY METHOD 07/08/2024 8:54 PM EST [facility] Blood Venous blood specimen / Unknown Venipuncture / Unknown 07/08/2024 12:22 PM EST 07/08/2024 12:22 PM EST us Adiel Price MD LAB BLOOD ORDERABLES Final Result [facility] [address] [place] [address], [place] [phone] * (ABNORMAL) Comprehensive metabolic panel (07/08/2024 12:22 PM EST) Sodium 136 133 - 145 mmol/L LAB CHEMISTRY METHOD 07/08/2024 3:50 PM EST [facility] Potassium 3.9 3.5 - 5.5 mmol/L LAB CHEMISTRY METHOD 07/08/2024 3:[address] [facility] Chloride 103 96 - 110 mmol/L LAB CHEMISTRY METHOD 07/08/2024 3:[address] [facility] CO2 29 21 - 32 mmol/L LAB CHEMISTRY METHOD 07/08/2024 3:[address] [facility] Anion Gap 4 3 - 11 LAB CHEMISTRY METHOD 07/08/2024 3:[address] [facility] Glucose 153(H) 70 - 100 mg/dL LAB CHEMISTRY METHOD 07/08/2024 3:[address] [facility] BUN 13 5 - 25 mg/dL LAB CHEMISTRY METHOD 07/08/2024 3:[address] [facility] Creatinine 0.83 0.50 - 1.10 mg/dL LAB CHEMISTRY METHOD 07/08/2024 3:[address] [facility] eGFR 79 >=60 mL/min/1. 73m2 LAB CHEMISTRY METHOD 07/08/2024 3:[address] [facility] Comment:Calculation based on the??Chronic Kidney Disease Epidemiology Collaboration (CKD-EPI) equation refit??without adjustment for race. BUN/Creatinine Ratio 15.7 LAB CHEMISTRY METHOD 07/08/2024 3:[address] [facility] Calcium 10.2 8.5 - 10.5 mg/dL LAB CHEMISTRY METHOD 07/08/2024 3:[address] [facility] AST (SGOT) 21 10 - 42 unit/L LAB CHEMISTRY METHOD 07/08/2024 3:[address] [facility] ALT (SGPT) 41 10 - 60 unit/L LAB CHEMISTRY METHOD 07/08/2024 3:[address] [facility] Alkaline Phosphatase 158(H) 42 - 121 unit/L LAB CHEMISTRY METHOD 07/08/2024 3:[address] [facility] Total Protein 9.1(H) 6.0 - 8.0 g/dL LAB CHEMISTRY METHOD 07/08/2024 3:50 PM EST [facility] Albumin 4.1 3.2 - 5.0 g/dL LAB CHEMISTRY METHOD 07/08/2024 3:50 PM EST [facility] Total Bilirubin 0.6 0.0 - 1.4 mg/dL LAB CHEMISTRY METHOD 07/08/2024 3:50 PM EST [facility] Blood Venous blood specimen / Unknown Venipuncture / Unknown 07/08/2024 12:22 PM EST 07/08/2024 12:22 PM EST Jon CASSIDY LAB BLOOD ORDERABLES Final Resu lt [facility] [address] [place] [address], * External clinical lab (06/30/2024) Provider Wally [employer] LAB BLOOD ORDERABLES Fin al Result * Depression Screening (11/04/2023) Depression Screening ABSTRACTED Historical Provider HEALTH MAINTENANCE Final Result * Colonoscopy (11/01/2023) Colonoscopy no interpretation , abstracted Anatomical Region Laterality Modality Other Historical Provider HEALTH MAINTENANCE Final Result * SCREENING MAMMOGRAPHY BI 2-VIEW BREAST [...] Screening (04/07/2020) Hepatitis C Screening ABSTRACTED Result [facility] Historical Provider HEALTH MAINTENANCE Final Result * Cervical Cancer Screening: HPV (02/11/2020) Cervical Cancer Screening: HPV negative,a bstracted Historical Provider HEALTH MAINTENANCE Final Result from Last 3 Months or Most Recently Relevant to Health Maintenance Insurance [facility] Care Teams Inspector Optical Instrument Relationship Specialty Start Date End Date Adiel Price MD [address] [place] [address] PCP - General Internal Medicine 12/16/21
== END 2024-08-12 08:11 | disposition home or self-care (01) ==
LOC: HO.US 08:10
PROVIDERS: PCP Internal Medicine; Visit Provider Student in an Organized Health Care Education/Training Program
DX: K76.0 Fatty (change of) liver, not elsewhere classified (principal); R74.01 Elevation of levels of liver transaminase levels
CPT/HCPCS: 76700; 76981

== ENCOUNTER → 2024-08-12 08:12 | Outpatient (BNV) | payer OTHER, SELFPAY | PROVIDERS: PCP Internal Medicine; Visit Provider Radiology Diagnostic Radiology | DX: K76.0 Fatty (change of) liver, not elsewhere classified (principal); R16.0 Hepatomegaly, not elsewhere classified | CPT/HCPCS: 76700; 76981 ==

== ENCOUNTER 2024-10-24 14:49 | Outpatient (REF) | payer OTHER, SELFPAY ==
--- OUTSIDE RECORDS SUMMARY | 2024-10-24 14:52 | XMS_ITS | Clinical Summary ---
Author Organization [facility] Address [address] [place] [address] Phone Care Team Providers Care Manager Retirement Name Role Phone Adiel Price MD Primary Care Provider Allergies No known active allergies Medications cholecalcifero l (VITAMIN D-3) 50 mcg (2,000 unit) tablet Take 1 tablet (2,000 Units total) by mouth 1 (one) time each day. 01/02/20 23 Active adalimumab (Humira,CF, Pen) 40 mg/0.4 mL pen 07/21/19 23 Active predniSONE (DELTASONE) 1 mg tablet Route: Take 1 Tablet by mouth daily. - Or 08/05/19 22 Active aspirin 81 mg EC tablet TAKE 1 TABLET BY MOUTH EVERY DAY 90 tablet 1 04/18/20 24 Active amLODIPine (NORVASC) 5 mg tablet Take 1 tablet (5 mg total) by mouth 1 (one) time each day. 90 tablet 1 05/02/20 24 Active pantoprazole (PROTONIX) 40 mg EC tablet Take 1 tablet (40 mg total) by mouth 1 (one) time each day. 90 tablet 1 06/09/19 25 Active atorvastatin (LIPITOR) 20 mg tablet Take 1 tablet (20 mg total) by mouth 1 (one) time each day. 90 tablet 1 07/30/19 25 Active nystatin-triam cinolone (MYCOLOG II) ointment Apply a thin layer to affected area MWFApply a thin layer to affected area nightly x 2 weeks, then MWF 15 g 1 09/25/19 25 Active venlafaxine XR (EFFEXOR-XR) 37.5 mg 24 hr capsule TAKE 1 CAPSULE BY MOUTH 1 TIME EACH DAY. DO NOT CRUSH OR CHEW. 90 capsule 1 10/02/19 25 Active tiZANidine (ZANAFLEX) 2 mg tablet TAKE 1 TABLET BY MOUTH AT BEDTIME NEEDED FOR MUSCLE SPASMS. 90 tablet 1 10/02/19 25 Active oxyCODONE-acet aminophen (PERCOCET) 5-325 mg per tablet Take 1 tablet by mouth 1 (one) time each day if needed for moderate pain. Max Daily Amount: 1 tablet 28 tablet 10/07/19 25 Active metFORMIN XR (GLUCOPHAGE-XR ) 500 mg 24 hr tablet Take 1 tablet (500 mg total) by mouth 1 (one) time each day with breakfast. Do not crush, chew, or split. 90 each 1 10/14/19 25 026 Active carbamide peroxide (DEBROX) 6.5 % otic solution Administer 5-10 drops into each ear 2 (two) times a day. 15 mL 07/08/19 25 025 Discontinued venlafaxine XR (EFFEXOR-XR) 37.5 mg 24 hr capsule Take 1 capsule (37.5 mg total) by mouth 1 (one) time each day. Do not crush or chew. 30 each 3 07/08/19 25 025 Discontinued tiZANidine (ZANAFLEX) 2 mg tablet Take 1 tablet (2 mg total) by mouth at bedtime as needed for muscle spasms. 30 tablet 2 07/08/19 25 025 Discontinued oxyCODONE-acet aminophen (PERCOCET) 5-325 mg per tablet Take 1 tablet by mouth 1 (one) time each day if needed for moderate pain. Max Daily Amount: 1 tablet 28 tablet 09/09/19 25 025 Discontinued(Re order) Active Problems Problem Noted Date Diagnosed Date Anxiety and depression 10/12/2024 Prediabetes 10/12/2024 Elevated alkaline phosphatase level 10/12/2024 VBI (vertebrobasilar insufficiency) 07/06/2024 Transaminitis 07/06/2024 Lichen sclerosus 02/05/2024 Mixed hyperlipidemia 06/05/2023 Primary hypertension 06/05/2023 TIA (transient ischemic attack) 06/05/2023 Left sided sciatica 12/16/2021 Over weight 12/16/2021 Gastritis with intestinal metaplasia of stomach 08/30/2021 Gastroesophageal reflux disease 05/30/2021 Seropositive rheumatoid arth ritis ([facility] V24, [facility] V28) 08/29/2017 Overview (02/05/2024): Onset late 2016 - [...] Encounters Date Type Department Care Team Description 10/13/2024 8:15 AM EDT Office Visit Adult Medicine [address] [phone] Adiel Price MD Primary hypertension (Primary Dx); Mixed hyperlipidemia; TIA (transient ischemic attack); Seropositive rheumatoid arthritis ([facility] V24, [facility] V28); Anxiety and depression; Polycythemia; Elevated alkaline phosphatase level; Prediabetes; Other chronic pain; Encounter for screening mammogram for malignant neoplasm of breast from Last 3 Months Immunizations Name Administration [...] With left sciatica Seropositive rheumatoid arth ritis ([facility]/HCC V24, [facility]/HCC V28) 08/29/2017 DX:Seropositive rheumatoid arthritis (HCC); COMMENT: Onset late 2016 - migratory [...] drink = 0.6 oz pur e alcohol) Housing Instability Answer Date Recorde d Are you worried that in the next 2 months you may not have stable housing? No 10/07/2024 Food Access & Nutrition Answer Date Rec orded Do you have access to a vari ety of food including fruits and vegetables? No 10/07/2024 Access to Healthcare Answer Date Record ed Within the last 3 months, ho w many times did you visit the emergency department for your medical care? 0 10/07/2024 Health Literacy Answer Date Recorded How often do you need to hav e someone help you when you read instructions, pamphlets, or other written material from your doctor or pharmacy? Never 10/07/2024 Caregiver: How often do you need to have someone help you when you read instructions, pamphlets, or other written material from your doctor or pharmacy? Not on file 10/07/2024 Financial Risk Answer Date Recorded How hard is it for you to pa y for the very basics like food, housing, medical care, and air conditioning / heating? Not very hard 10/07/2024 Transportation Answer Date Recorded Has the lack of transportati on kept you from meetings, work, or from getting things needed for daily living? No Has the lack of transportati on kept you from medical appointments or from getting medications? No 10/07/2024 Social Isolation Answer Date Recorded How often do you feel lonely or isolated from those around you? Sometimes 10/07/2024 Food Risk Answer Date Recorded Within the past 12 months we worried whether our food would run out before we got money to buy more. Never true 10/07/2024 Within the past 12 months th e food we bought just didn't last and we didn't have money to get more. Never true 10/07/2024 Dependent Care Answer Date Recorded Do you need help finding or paying for care for your loved ones. For example, children's tutor nursery or elderly care for an older adult? No 10/07/2024 Education Answer Date Recorded Do you think completing more education or training, like finishing a GED, going to college, or learning a trade, would be helpful for you? No 10/07/2024 Employment and Income Answer Date Recor ded During the last four weeks, have you been actively looking for work? No 10/07/2024 Living Situation Answer Date Recorded What is your living situation? 0 10/07/2024 Comments No Sex and Gender Information Value Date Recorded Sex Assigned at Female 04/09/2024 4:21 PM EST Legal Sex Female 3:43 PM EST Gender Identity Female 04/09/2024 4:21 PM EST Sexual Orientation Straight 04/09/2024 4: 21 PM EST Obstetrics History Last Filed Vital Signs Vital Sign Reading Time Taken Comments Blood Pressure 129/88 10/13/2024 8:11 AM EDT Pulse 72 10/13/2024 8:11 AM EDT Temperature 36.4 C (97.6 F) 10/13/2024 8:11 AM EDT Respiratory Rate 14 10/13/2024 8:11 AM EDT Oxygen Saturation 97% 07/07/2024 2:49 PM EST Inhaled Oxygen Concentration - - Weight 70.3 kg (155 lb) 10/13/2024 8:11 AM EDT Height 162.6 cm (5' 4 ) 07/07/2024 2:49 PM EST Body Mass Index 26.61 07/07/2024 2:49 PM EST Plan of Treatment Upcoming Encounters Date Type Department Care Team (Late st Contact Info) Description 02/13/2025 9:30 AM EDT Office Visit Adult Medicine [address] [phone] Liz Willis PA [address] [place] [phone] Health Maintenance Due Date Last Done Comments Hepatitis A Vaccines (1 of 2 - Risk 2-dose series) 02/13/1980 Zoster Vaccines (1 of 2) 2011 Hepatitis B Vaccines (1 of 3 - Risk 3-dose series) 2021 RSV Immunization Adult Patients (1 - Risk 60-74 years 1-dose series) 2021 HIV Screening 04/15/2022 COVID-19 Vaccine ( season) 2024 02/11/2023, 09/22/2021, 12/22/2020, Additional history exists Cervical Cancer Screening: HPV 02/10/2025 02/11/2020 Hypertension/CHF/CAD Annual BMP Blood Test 07/08/2025 07/08/2024, 08/23/2023 Breast Cancer Screening 08/14/2025 08/15/19 24, 08/02/2022, 05/02/2021, Additional history exists Depression Screening 10/07/2025 10/07/2024, 11/04/19 Social Influencers of Health Screening 10/07/2025 10/07/2024 Cholesterol Screening (Lipid Panel) 07/08/2029 07/08/2024, 08/23/2023 [...] Procedure Name Priority Date/Time Associated Diagnosis Comments CBC WITH AUTO DIFFERENTIAL Routine 10/21/2024 11:50 AM EDT Polycythemia HEPATIC FUNCTION PANEL Routine 10/21/2024 11:50 AM EDT Elevated alkaline phosphatase level DRUG ABUSE SCREEN EXPANDED WITH REFLEX CONFIRMATION, URINE Routine 10/21/2024 11:50 AM EDT Other chronic pain CBC AND DIFFERENTIAL Routine 10/21/2024 11:50 AM EDT Polycythemia FERRITIN Routine 10/21/2024 11:50 AM EDT Polycythemia EXTERNAL ULTRASOUND REPORT 08/12/2024 EXTERNAL ULTRASOUND REPORT 08/12/2024 COMPREHENSIVE METABOLIC PANEL Routine 07/08/2024 12:22 PM EST Fatty liver LIPID PANEL WITH REFLEX TO DIRECT LDL Routine 07/08/2024 12:22 PM EST Mixed hyperlipidemia DEPRESSION SCREENING Routine 11/04/2023 COLONOSCOPY Routine 11/01/2023 SCREENING MAMMOGRAPHY BI 2-VIEW BREAST INC CAD Routine 08/15/2023 11:27 AM EDT Encounter for screening mammogram for malignant neoplasm of breast HEPATITIS C SCREENING Routine 04/07/2020 HPV Routine 02/11/2020 from Last 3 Months or Most Recently Relevant to Health Maintenance Results * (ABNORMAL) Drug abuse screen expanded with reflex confirmation, urine (10/21/2024 11:50 AM EDT) Amphetamine Screen, Ur Negative Negative LAB CHEMISTRY METHOD 5 4:52 PM EDT [facility] Comment:Certain OTC medicati ons containing ephedrine, phenylephrine, pseudoephedrine and phenylpropanolamine can cause false positive results. Barbiturate Screen, Ur Negative Negative LAB CHEMISTRY METHOD 5 4:52 PM EDT [facility] Benzodiazepine Screen, Ur Negative Negative LAB CHEMISTRY METHOD 5 4:52 PM EDT [facility] Cocaine Screen, Ur Negative Negative LAB CHEMISTRY METHOD 5 4:52 PM EDT [facility] Opiate Screen, Ur Negative Negative LAB CHEMISTRY METHOD 5 4:52 PM [facility] Cannabinoid (THC) Screen, Ur Negative Negative LAB CHEMISTRY METHOD 5 4:52 PM EDT [facility] Comment:Specimens from patie nts taking pantoprazole sodium (Protonix) have been shown to produce false positive results. Fentanyl, Ur Negative Negative LAB CHEMISTRY METHOD 4:52 PM EDT [facility] Oxycodone Screen, Ur Positive(A ) Negative LAB CHEMISTRY METHOD 4:52 PM EDT [facility] Urine Urine specimen obtained by clean catch procedure / Unknown Non-blood Collection / Unknown 10/21/2024 11:50 AM EDT 10/21/2024 11:50 AM EDT Narrative [facility] - 10/21/2024 4:52 PM EDT Assay cutoffs: Amphetamines 1000 ng/mL Barbiturates 200 ng/mL Benzodiazepines 200 ng/mL Cocaine 300 ng/mL Fentanyl 1 ng/mL Opiates 300 ng/mL Oxycodone 100 ng/mL THC 50 ng/mL Semi-quantitative assay for screening purposes only. Unconfirmed screening result should not be used for non-medical purposes. *POSITIVE RESULTS ARE AUTOMATICALLY SENT FOR ALTERNATE METHOD CONFIRMATION* Adiel Price MD LAB URINE ORDERABLES Final Result [facility] [address] [place] [address], * (ABNORMAL) CBC auto differential (10/21/2024 11:50 AM EDT) WBC 10.2 4.8 - 10.8 K/mcL LAB HEMETOLOGY METHOD 10/21/2024 2:12 PM EDT [facility] RBC 5.30(H) 3.80 - 4.80 M/mcL LAB HEMETOLOGY METHOD 10/21/2024 2:12 PM EDT [facility] Hemoglobin 14.9 11.5 - 16.0 g/dL LAB HEMETOLOGY METHOD 10/21/2024 2:12 PM EDT [facility] Hematocrit 47.0 35.0 - 47.0 % LAB HEMETOLOGY METHOD 10/21/2024 2:12 PM EDT [facility] MCV 88.0 79.0 - 98.0 FL LAB HEMETOLOGY METHOD 10/21/2024 2:12 PM EDT [facility] MCH 27.9 27.0 - 32.0 pcg LAB HEMETOLOGY METHOD 10/21/2024 2:12 PM [facility] MCHC 31.7(L) 32.0 - 37.0 g/dL LAB HEMETOLOGY METHOD 10/21/2024 2:12 PM EDT [facility] RDW 13.1 11.0 - 15.0 % LAB HEMETOLOGY METHOD 10/21/2024 2:12 PM [facility] Platelets 256 130 - 400 K/mcL LAB HEMETOLOGY METHOD 10/21/2024 2:12 PM [facility] MPV 12.2(H) 7.0 - 11.0 FL LAB [facility]EMETOLOGY [facility] NRBC 0.0 <1.0 % LAB HEMETOLOGY METHOD 10/21/2024 2:12 PM [facility] NRBC Absolute 0.00 <0.10 K/mcL LAB HEMETOLOGY METHOD 10/21/2024 2:12 PM [facility] Neutrophils Relative 47.7 % LAB HEMETOLOGY METHOD 10/21/2024 2:12 PM [facility] Lymphocytes Relative 39.1 % LAB HEMETOLOGY METHOD 10/21[facility]2024 [facility] Monocytes Relative 9.8 % LAB HEMETOLOGY METHOD 10/21/2024 2:12 PM [facility] Eosinophils Relative 2.3 % LAB HEMETOLOGY METHOD 10/21/2024 2:12 PM [facility] Basophils Relative 0.9 % LAB HEMETOLOGY METHOD 10/21/2024 2:12 PM EDT [facility] Immature Granulocytes Relative 0.2 % LAB HEMETOLOGY METHOD 10/21/2024 2:12 PM EDT [facility] Neutrophils Absolute 4.85 1.50 - 7.00 K/mcL LAB HEMETOLOGY METHOD 10/21/2024 2:12 PM EDT [facility] Lymphocytes Absolute 3.97 1.00 - 5.00 K/mcL LAB HEMETOLOGY METHOD 10/21/2024 2:12 PM EDT [facility] Monocytes Absolute 1.00 0.20 - 1.00 K/mcL LAB HEMETOLOGY METHOD 10/21/2024 2:12 PM EDT [facility] Eosinophils Absolute 0.23 0.00 - 0.50 K/mcL LAB HEMETOLOGY METHOD 10/21/2024 2:12 PM EDT [facility] Basophils Absolute 0.09 0.00 - 0.20 K/mcL LAB HEMETOLOGY METHOD 10/21/2024 2:12 PM EDT [facility] Immature Granulocytes Absolute 0.02 0.00 - 0.03 K/mcL LAB HEMETOLOGY METHOD 10/21/2024 2:12 PM EDT [facility] Blood Venous blood specimen / Unknown Venipuncture / Unknown 10/21/2024 11:50 AM EDT 10/21/2024 11:50 AM EDT us Adiel Price MD LAB BLOOD ORDERABLES Final Result [facility] [address] [place] [address], * Ferritin (10/21/2024 11:50 AM EDT) Ferritin 228 8 - 252 ng/mL LAB CHEMISTRY METHOD 10/21/2024 3:55 PM EDT [facility] Blood Venous blood specimen / Unknown Venipuncture / Unknown 10/21/2024 11:50 AM EDT 10/21/2024 11:50 AM EDT Adiel Price MD LAB BLOOD ORDERABLES Final Result [facility] [address] [place] [address], * (ABNORMAL) Hepatic function panel (10/21/2024 11:50 AM EDT) Total Protein 7.6 6.0 - 8.0 g/dL LAB CHEMISTRY METHOD 10/21/2024 3:55 PM EDT [facility] Albumin 3.4 3.2 - 5.0 g/dL LAB CHEMISTRY METHOD 10/21/2024 3:55 PM EDT [facility] Total Bilirubin 0.4 0.0 - 1.4 mg/dL LAB CHEMISTRY METHOD 10/21/2024 3:55 PM EDT [facility] Bilirubin, Direct 0.1 0.0 - 0.3 mg/dL LAB CHEMISTRY METHOD 10/21/2024 3:55 PM T [facility] Bilirubin, Indirect 0.3 0.0 - 1.1 mg/dL LAB CHEMISTRY METHOD 10/21/2024 3:55 PM T [facility] ALT (SGPT) 36 10 - 60 unit/L LAB CHEMISTRY METHOD 10/21/2024 3:55 PM T [facility] AST (SGOT) 27 10 - 42 unit/L LAB CHEMISTRY METHOD 10/21/2024 3:55 PM T [facility] Alkaline Phosphatase 137(H) 42 - 121 unit/L LAB CHEMISTRY METHOD 10/21/2024 3:55 PM T [facility] Blood Venous blood specimen / Unknown Venipuncture / Unknown 10/21/2024 11:50 AM EDT 10/21/2024 11:50 AM EDT us Adiel Price MD LAB BLOOD ORDERABLES Final Result [facility] [address] [place] [address], [place] [phone] * External Ultrasound Report (08/12/2024) Only the most recent of2 resultswithin the time period is included. Anatomical Region Laterality Modality Ultrasound us Provider [facility] US PROCEDURES Final Result * Lipid panel with reflex to direct [...] PM EST [facility] VLDL Cholesterol Dk 12.4 mg/dL LAB CHEMISTRY METHOD 07/08/2024 3:50 PM EST [facility] Non HDL Chol. (LDL+VLDL) 106 <145 mg/dL LAB CHEMISTRY METHOD 07/08/2024 3:50 PM EST [facility] Chol/HDL Ratio 2.6 0.0 - 4.4 LAB CHEMISTRY METHOD 07/08/2024 3:[address] [facility] Blood Venous blood specimen / Unknown Venipuncture / Unknown 07/08/2024 12:22 PM EST 07/08/2024 12:22 PM EST us Adiel Price MD LAB BLOOD ORDERABLES Final Result [facility] [address] [place] [address], * (ABNORMAL) Comprehensive metabolic panel (07/08/2024 12:22 PM EST) Sodium 136 133 - 145 mmol/L LAB CHEMISTRY METHOD 07/08/2024 3:50 PM EST [facility] Potassium 3.9 3.5 - 5.5 mmol/L LAB CHEMISTRY METHOD 07/08/2024 3:[address] [facility] Chloride 103 96 - 110 mmol/L LAB CHEMISTRY METHOD 07/08/2024 3:[address] [facility] CO2 29 21 - 32 mmol/L LAB CHEMISTRY METHOD 07/08/2024 3:[address] [facility] Anion Gap 4 3 - 11 LAB CHEMISTRY METHOD 07/08/2024 3:[address] [facility] Glucose 153(H) 70 - 100 mg/dL LAB CHEMISTRY METHOD 07/08/2024 3:[address] [facility] BUN 13 5 - 25 mg/dL LAB CHEMISTRY METHOD 07/08/2024 3:[address] [facility] Creatinine 0.83 0.50 - 1.10 mg/dL LAB CHEMISTRY METHOD 07/08/2024 3:50 PM EST [facility] eGFR 79 >=60 mL/min/1. 73m2 LAB CHEMISTRY METHOD 07/08/2024 3:[address] [facility] Comment:Calculation based on the Chronic Kidney Disease Epidemiology Collaboration (CKD-EPI) equation refit without adjustment for race. BUN/Creatinine Ratio 15.7 LAB CHEMISTRY METHOD 07/08/2024 3:[address] [facility] Calcium 10.2 8.5 - 10.5 mg/dL LAB CHEMISTRY METHOD 07/08/2024 3:[address] [facility] AST (SGOT) 21 10 - 42 unit/L LAB CHEMISTRY METHOD 07/08/2024 3:50 PM EST [facility] ALT (SGPT) 41 10 - 60 unit/L LAB CHEMISTRY METHOD 07/08/2024 3:50 PM EST [facility] Alkaline Phosphatase 158(H) 42 - 121 unit/L LAB CHEMISTRY METHOD 07/08/2024 3:[address] [facility] Total Protein 9.1(H) 6.0 - 8.0 g/dL LAB CHEMISTRY METHOD 07/08/2024 3:50 PM EST [facility] Albumin 4.1 3.2 - 5.0 g/dL LAB CHEMISTRY METHOD 07/08/2024 3:[address] [facility] Total Bilirubin 0.6 0.0 - 1.4 mg/dL LAB CHEMISTRY METHOD 07/08/2024 3:[address] [facility] Blood Venous blood specimen / Unknown Venipuncture / Unknown 07/08/2024 12:22 PM EST 07/08/2024 12:22 PM EST Jon CASSIDY LAB BLOOD ORDERABLES Final Resu lt [facility] [address] [place] [address], * Depression Screening (11/04/2023) Depression Screening ABSTRACTED [...] breasts are composed mostly of fatty tissue. No suspicious mass, architectural distortion or suspicious calcifications [...] Final Result * Hepatitis C Screening (04/07/2020) Pathologist [facility] Hepatitis C Screening ABSTRACTED Historical Provider HEALTH MAINTENANCE Final Result * Cervical Cancer Screening: HPV (02/11/2020) Pathologist [facility] Cervical Cancer Screening: HPV negative,a bstracted Historical Provider HEALTH MAINTENANCE Final Result from Last 3 Months or Most Recently Relevant to Health Maintenance Insurance [facility] Care Teams Manager Retirement Relationship Specialty Start Date End Date Adiel Price MD [address] [place] [address] PCP - General Internal Medicine 12/16/21
[2024-10-24 14:59] LABS: MANUAL DIFF FLAG NO
[2024-10-24 15:20] LABS: Basophils Absolute Auto 0.1 X10*3/uL (0.0-0.2); Basophils Percent Auto 0.9 % (0-2); Eosinophils Absolute Auto 0.2 X10*3/uL (0.0-0.4); Eosinophils Percent Auto 1.6 % (0-4); Hematocrit 45.4 % (37.0-47.0); Hemoglobin 15.6 g/dl (12.0-16.0); Imm Gran Abs Auto 0.02 X10*3/uL (0.00-0.03); Imm Gran Pct Auto 0.2 % (0.0-0.4); Lymphocytes Absolute Auto 2.7 X10*3/uL (1.2-4.9); Lymphocytes Percent Auto 28.9 % (20-40); Mean Corpuscular HGB Conc 34.4 g/dl (31.0-35.0); Mean Corpuscular Hemoglobin 28.9 pg (27.0-33.0); Mean Corpuscular Volume 84.2 fL (80.0-98.0); Mean Platelet Volume 11.4 fL (9.4-12.3); Monocytes Absolute Auto 0.7 X10*3/uL (0.1-1.2); Monocytes Percent Auto 7.8 % (2-11); Neutrophils Absolute Auto 5.7 x10*3/uL (2.0-8.3); Neutrophils Percent Auto 60.6 % (45-73); Platelet Count 237 X10*3/uL (160-400); Red Blood Count 5.39 X10*6/uL (4.20-5.50); White Blood Count 9.3 X10*3/uL (4.8-10.8)
[2024-10-24 15:52] LABS: Alanine Aminotransferase 34 U/L (0-31); Albumin Level 4.3 g/dL (3.5-5.0); Alkaline Phosphatase 133 U/L (39-117); Anion Gap 10 (12-20); Aspartate Amino Transferase 29 U/L (5-31); Bilirubin Total 0.5 mg/dL (0.0-1.0); Blood Urea Nitrogen 8 mg/dL (9-16); C Reactive Protein 0.13 mg/dL (< or = 0.50); Calcium 9.3 mg/dL (8.4-10.2); Carbon Dioxide 29 mmol/L (22-29); Chloride 105 mmol/L (96-108); Estimated Glomerular Filt Rate > 60; Glucose Random 142 mg/dL (60-115); Potassium 3.8 mmol/L (3.3-5.1); Sodium 140 mmol/L (135-145); Total Protein 7.9 g/dL (6.5-8.0)
[2024-10-24 16:05] LABS: Erythrocyte Sedimentation Rate 8 MM/HR (0-20)
== END 2024-10-24 14:50 | disposition home or self-care (01) ==
LOC: HO.LAB 14:49
PROVIDERS: PCP Internal Medicine; Visit Provider Student in an Organized Health Care Education/Training Program
DX: Z79.620 Long term (current) use of immunosuppressive biologic (principal); M05.9 Rheumatoid arthritis with rheumatoid factor, unspecified
CPT/HCPCS: 36415; 80053; 85025; 85652; 86140

== ENCOUNTER 2024-10-28 11:40 | Outpatient (AMB) | payer OTHER, SELFPAY ==
--- NOTE | 2024-10-28 11:44 | A.OFFVIS_ITS ---
Vital Signs 10/28/24 11:50 Height 5 ft 4 in Weight 154 lb 12.232 oz BMI 26.6 BP 130/80 Blood Pressure Location Lt brachial Position Sitting Pulse 76 Pulse Source Pulse Oximeter Pulse Oximetry (%) 98 Oxygen Delivery Method Room Air Intake Visit Reasons: follow up Intake Note: Patient presents for RA/OA follow up. Allergies No Known Allergies Allergy (Verified 10/28/24 11:47) Medication List - Last Reconciled 10/28/24 by Tana Triplett MD acyclovir 400 mg PO BID PRN adalimumab-aaty 40 mg (0.4 mL) subcut Q2W amlodipine 5 mg PO DAILY atorvastatin 20 mg PO DAILY cholecalciferol (vitamin D3) 50 mcg PO DAILY cyclobenzaprine 5 mg PO TID PRN diclofenac sodium 1% 1-2 gram topically to affected joints twice a day if needed metformin ER 500 mg PO QAM oxycodone-acetaminophen 5-325 mg 1 tab PO DAILY PRN pantoprazole (Protonix) 40 mg PO DAILY prednisone 2 mg (2 x 1 mg) PO DAILY HPI Comments Details: Patient is a 64-year-old female with GERD, polyarticular osteoarthritis and seropositive rheumatoid arthritis here today for follow up Interval History: Patient last seen 06/18/24 with me. At that time she was complaining of joint pain, particularly in her hands. No change was made to her Humira at that time and she was recommended topical diclofenac for her hand OA Today she states that the topical diclofenac helps a bit but still complaining of bilateral pain to the hands with stiffness and swelling in the AM Has pain both in the evening after a long day and in the AM Rheumatologic History: ++RF ++CCP Onset late 2016 - migratory pattern Hydroxychloroquine use not possible due to retinal abnormalities Sulfasalazine started 08/22 - ineffective by 04/23 Methotrexate started 04/23 - stopped 01/24 due to LFT elelvation Humira started summer 2020: She did well but was frightened by COVID outbreak so she stopped that at the end of 2020. Humira restarted 2021 advanced to weekly 02/2023 Current Rheumatology Medication(s): Humira 40 mg every week Prednisone 2 mg daily [facility] Medical History (Updated 06/18/24 @ 16:06 by aTna Triplett MD) Encounter for monitoring of adalimumab therapy Surgical History No history of previous surgery Family History Mother CHF (congestive heart failure) Arthritis Father Diabetes Brother Diabetes Sister CHF (congestive heart failure) Arthritis Maternal Grandfather Cancer Maternal Grandmother Cancer Social History Household Members: Spouse Housing: Apartment Are you a primary career portals teacher to a significant other at home: No Do you presently have visiting nurse or other home services: No Alcohol intake: never Patient Tobacco Use Status: Former Tobacco user Years Smoked: Quit 1 year ago e-Cigarette/Vaping Use: Never Used service: No Current occupational status: employed Current occupation: [employer] Review of Systems Const Details: Review of Systems Constitutional: Denies fever, chills, weight loss ENT: Denies vision changes, eye pain or eye redness, dental caries, dry mouth GI: Denies nausea, vomiting, diarrhea, abdominal pain, change in BM Pulm: Denies SOB, MORATAYA, hemoptysis, wheezing Cards: Denies chest pain, palpitations Skin: Denies Raynaud's, rash, nail changes, photosensitivity, CLIENT RELATIONS SPECIALIST: Denies headaches, weakness, paresthesias, recurrent falls MSK: as per HPI All other systems reviewed and are unremarkable except noted above Physical Exam Vital Signs: Last Vital Signs Pulse 76 10/28/24 11:50 BP 130/80 10/28/24 11:50 Pulse Ox 98 10/28/24 11:50 Oxygen Delivery Method Room Air 10/28/24 11:50 BMI result Body Mass Index 26.6 Vital signs reviewed Physical Examination CONSTITUITIONAL Patient alert and cooperative. Well appearing and in no apparent painful distress HEENT Conjunctiva and sclera clear. ?Pupils equal round and reactive to light. ?No lymphadenopathy. ? CHEST/RESPIRATORY SYSTEM Normal respiratory effort and able to speak in complete sentences. ?Clear to auscultation bilaterally. ?No crackles, rales, rhonchi, wheezes heard. CARDIAC SYSTEM Regular rate and rhythm. ?S1 and S2 heard no murmurs. ?Radial pulses intact bilaterally MSK Hands: ?Good sunday school missionary strength bilaterally. No deformities noted. ?TTP of the 2nd and 3rd MCP on the right and left. TTP of 2-5 PIPs bilaterally. Herbeden's nodes noted Wrists: ?Full range of motion at the wrists without pain. ?TTP of bilateral wrists Elbows: Full range of motion without pain. No tenderness, weakness, swelling, increased warmth or erythema. Shoulders: Full range of motion without pain. No TTP of the AC joint of the s houlder. TTP of the trapezius bilaterally Knees: ?Full range of motion. ?No tenderness, swelling, increased warmth or erythema.?No effusion or crepitations Ankles: Full range of motion. ?No tenderness, swelling, increased warmth or erythema.? Feet: ?Negative squeeze test. ?No tenderness to palpation or swelling of the MTPs. Tender points:?No tenderness to palpation of the supraspinatus, greater trochanters, anterior costochondral junctions, bilateral gluteal areas, bilateral suboccipital muscle insertions SKIN Skin intact without rashes. Results Reviewed Results Reviewed: Laboratory Tests 10/24/24 14:57 WBC 9.3 RBC 5.39 Hgb 15.6 Hct 45.4 Plt Count 237 ESR 8 Sodium 140 Potassium 3.8 Chloride 105 Carbon Dioxide 29 BUN 8 L Creatinine 0.79 AST 29 ALT 34 H Alkaline Phosphatase 133 H C-Reactive Protein 0.13 Infectious serologies 06/30/24 12:11 Hepatitis A IgM Ab Nonreactive Hep Bs Antigen Negative Hep Bs Antibody NONREACTIVE Hep B Core Total Ab Nonreactive Hepatitis C Ab (EIA) Nonreactive TB Test (T-Spot) Com Negative Liver elastography 08/2024 FINDINGS: Liver: The right lobe of the liver measures 15.0 cm in size. The left lobe of the liver measures 10.4 cm in size. The liver demonstrates increased echotexture, consistent with steatosis. There is focal fatty sparing adjacent to the gallbladder. No focal mass or intrahepatic biliary ductal dilatation is identified. There is normal hepatopedal flow in the portal vein. Ultrasound elastography of the liver was performed with 10 separate measurements of the liver parenchyma with the patient in the supine position. Measurements were obtained approximately 2 cm below Milton's capsule and perpendicular to the capsule. Images are of satisfactory quality. The median shear wave velocity is 1.17 m/s. The interquartile range/median (IQR/median) is 0.09. Gallbladder and biliary tree: The gallbladder is unremarkable, without evidence of calculi, wall thickening, or pericholecystic fluid. There is no sonographic Muñoz sign. The common bile duct is normal in caliber measuring 3 mm. Kidneys: The right kidney is 10.3 cm in length. The left kidney measures 10.2 cm in length. The kidneys are unremarkable, without evidence of masses, hydronephrosis, or calculi. Pancreas: The pancreatic head, neck, and body are unremarkable. The pancreatic tail is obscured by bowel gas. Spleen: The spleen is normal in size and contour, measuring 8.2 cm in length. Abdominal aorta and inferior vena cava: The visualized portions of the abdominal aorta and inferior vena cava are normal in caliber. There is no free fluid in the abdomen. IMPRESSION: Hepatomegaly and hepatic steatosis. The median shear wave velocity in the liver is 1.17 m/s, corresponding to a median liver stiffness of 4.2 kPa. The IQR/median value is 0.09. This is indicative of a quality data set. Findings are indicative of a normal elastography value with a low likelihood of severe fibrosis or cirrhosis. DEXA 11/2022 FINDINGS: LEFT FEMUR, NECK: BMD 0.976 g/cm2, Z-score -0.2, T-score -0.4, normal. LEFT FEMUR, TOTAL: BMD 1.062 g/cm2, Z-score 0.3, T-score 0.4, normal. AP SPINE L1-L4: BMD 1.279 g/cm2, Z-score 1.2, T-score 0.8, normal. Assessment & Plan Assessment & Plan (1) Seropositive rheumatoid arthritis: Comment: ++RF ++CCP Onset late 2016 - migratory pattern Hydroxychloroquine use not possible due to retinal abnormalities Sulfasalazine started 08/22 - ineffective by 04/23 Methotrexate started 04/23 - stopped 01/24 due to LFT elelvation Humira started summer 2020: She did well but was frightened by COVID outbreak so she stopped that at the end of 2020. Humira restarted 2021 advanced to weekly 02/2023 Code(s): M05.9 - Rheumatoid arthritis with rheumatoid factor, unspecified Category: Medical Plan: #Seropositive RA Patient is a 63-year-old female with seropositive rheumatoid arthritis. TTP of the MCPs and PIPs bilaterally. Recently changed from Humira to bio similar. There is moderate disease activity today. Will check humira Abs and if negative will switch to Simponi. If positive will switch to Xeljanz/Rinvoq Increase prednisone to 5mg for now Plan - Adalimumab 40mg SC every week for now - Prednisone 5mg daily - RTC 3 months - Labs before visit: CBC, CMP, ESR, CRP (2) Osteoarthritis of hands, bilateral: Code(s): M19.041 - Primary osteoarthritis, right hand; M19.042 - Primary osteoarthritis, left hand Category: Medical Qualifiers: Osteoarthritis type: primary Qualified Code(s): M19.041 - Primary osteoarthritis, right hand; M19.042 - Primary osteoarthritis, left hand Plan: #Bilateral hand OA Continue topical diclofenac Plan - Topical diclofenac 1% 4 times a day (3) Osteoporosis screening: Code(s): Z13.820 - Encounter for screening for osteoporosis Plan: #Osteoporosis screening Patient last DEXA 11/17/2022 which was normal. Given that she is on long-term steroids we will need to do a repeat DEXA this year. 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 Category: Medical Plan: #Long-term Use of TNF Inhibitors: Adalimumab Discussed with the patient the benefits and risks of TNF inhibitors for the management of the rheumatic condition Benefits include reduce pain, maintenance of remission and reduction of flares as well as ?progression of the disease Risks include injection sites/infusion reactions, serious infections (such as bacterial infections, opportunistic infections), malignancy, delaminating syndromes, autoimmune phenomena, CHF exacerbations, palmar plantar psoriasis and cytopenias Recommended rotating injection sites, and holding medication during and for up to 1 week after resolution of a febrile illness or open skin wound (5) On prednisone therapy: Code(s): Z79.52 - ferry terminal supervisor (current) use of systemic steroids Category: Medical Plan: #Long-term Use of Steroids Discussed with patient the risks and benefits of steroid for managing the rheumatic condition Benefits include: - Reduced pain, improved mobility, increased participation in activities, and decreased progression of disease Risks include: - GI upset, potential ultrasound worsening or formation (especially in patients > 65 years old), elevated blood pressure/worsening hypertension, elevated blood sugar/worsening diabetes control, worsening of bone density, elevated l ipids/worsening triglycerides, cataract formation, weight gain Recommended using proton pump inhibitors (PPIs) for the duration of steroid use to reduce the risk of gastric ulcers and vitamin-D daily to reduce the risk of osteoporosis Labs checked: ?A1c, T spot, hepatitis-B and C serologies Pneumocystis jiroveci prophylaxis: ?Patient with risk factors including steroids greater than 50 mg for more than 30 days, age greater than 60 years, and lung involvement from underlying rheumatic disease requires prophylaxis and will be given so Plan I spent 35 minutes reviewing the record and labs, taking a history, examining the patient, discussing the treatment plan and documenting in the medical record Orders: Orders Erythrocyte Sedimentation Rate 3 Months M05.9 - Rheumatoid arthritis with rheumatoid factor, unspecified Adalimumab+Ab Today M05.9 - Rheumatoid arthritis with rheumatoid factor, unspecified Complete Blood Count Auto Diff 3 Months M05.9 - Rheumatoid arthritis with rhe umatoid factor, unspecified Comprehensive Met. Panel 3 Months M05.9 - Rheumatoid arthritis with rheumatoid factor, unspecified C Reactive Protein 3 Months M05.9 - Rheumatoid arthritis with rheumatoid factor, unspecified Medications: Changed From prednisone 2 mg (2 x 1 mg) PO DAILY 60 tabs 5RF M05.9 - Rheumatoid arthritis with rheumatoid factor, unspecified To prednisone 5 mg PO DAILY 90 tabs 1RF M05.9 - Rheumatoid arthritis with rheumatoid factor, unspecified Coding Level of Care Code Est Pt Level 4 (66198) Complex EM visit Add On G2211 Diagnoses Seropositive rheumatoid arthritis M05.9 Primary osteoarthritis of both hands M19.041; M19.042 Osteoarthritis type: primary Osteoporosis screening Z13.820 Encounter for monitoring of adalimumab therapy Z51.81; Z79.620 On prednisone therapy Z79.52
[2024-10-28 11:50] VITALS: BP 130/80; PULSE 76; O2SAT 98; BMI 26.6
--- OUTSIDE RECORDS SUMMARY | 2024-10-28 13:23 | XMS_ITS | Clinical Summary ---
Author Organization 175 [facility] Address [address] [place] [address] Phone Care Team Providers Care Traffic Control Officer Name Role Phone Adiel Price MD Primary [...] 90 each 1 10/14/19 25 026 Active valACYclovir (VALTREX) 500 mg tablet Take 1 tablet (500 mg total) by mouth 2 (two) times a day. 10 each 5 10/28/19 25 Active carbamide peroxide (DEBROX) 6.5 % otic [...] reflux disease 05/30/2021 Seropositive rheumatoid arth ritis ([facility] V24, [facility] V28) 08/29/2017 Overview (02/05/2024): Onset late 2016 [...] 8:15 AM EDT Office Visit Adult Medicine [address] [phone] Adiel Price MD Primary hypertension (Primary Dx); Mixed hyperlipidemia; TIA (transient ischemic attack); Seropositive rheumatoid arthritis ([facility] V24, [facility] V28); Anxiety and depression; Polycythemia; Elevated alkaline [...] With left sciatica Seropositive rheumatoid arth ritis ([facility] V24, [facility] V28) 08/29/2017 DX:Seropositive rheumatoid arthritis (HCC); COMMENT: [...] for your loved ones. For example, children's librarian or elderly care for an older adult? [...] 9:30 AM EDT Office Visit Adult Medicine [address] [phone] Liz Willis PA [address] [place] [phone] Health Maintenance Due Date Last Done Comments [...] Procedure Name Priority Date/Time Associated Diagnosis Comments OPIATES CONFIRMATION, URINE Routine 10/21/2024 11:50 AM EDT Other chronic pain CBC WITH AUTO DIFFERENTIAL Routine 10/21/2024 11:50 [...] 5 4:52 PM EDT [facility] Cannabinoid (THC) Screen, Ur Negative Negative LAB CHEMISTRY METHOD 4:52 PM EDT [facility] Comment:Specimens [...] ARE AUTOMATICALLY SENT FOR ALTERNATE METHOD CONFIRMATION* us Adiel Price MD LAB URINE ORDERABLES Final Result [facility] [address] [place] [address], * Opiates confirmation, urine (10/21/2024 11:50 AM EDT) Morphine Confirm, Urine Negative ng/mL 10/27/2024 2:47 PM EDT [facility] Codeine Confirm, Urine Negative ng/mL 10/27/2024 2:47 PM EDT [facility] Hydrocodone Confirm, Urine Negative ng/mL 10/27/2024 2:47 PM EDT [facility] Hydromorphone Confirm, Urine Negative ng/mL 10/27/2024 2:47 PM EDT [facility] Oxycodone Confirm, Urine 205 ng/mL 10/27/2024 2:47 PM EDT [facility] Oxymorphone Confirm, Urine 36 ng/mL 10/27/2024 2:47 PM EDT [facility] Creatinine 61 20 - 250 mg/dL 10/27/2024 2:47 PM EDT [facility] Adulterants Negative 10/27/2024 2:[address] [facility] Comment: Confirmation (LC/MS/MS) Decision Limits Morphine 25 ng/mL Codeine 25 ng/mL Hydrocodone 25 ng/mL Hydromorphone 25 ng/mL Oxycodone 25 ng/mL Oxymorphone 25 ng/mL Adulterant Decision Limit: General Oxidants 200 ug/mL The adulterant assay tests for General Oxidants, including Chromates and Nitrites. Adulterants are substances either ingested or added directly to a urine specimen to prevent the detection of drug use. If applicable, any drug confirmation testing reported here was developed and the performance characteristics determined by [facility]. This confirmation testing has not been cleared or approved by the FDA. The laboratory is regulated under CLIA as qualified to perform high-complexity testing. This test is used for patient testing purposes. It should not be regarded as investigational or for research. Test performed at [facility], [address] , [place], [place] [id number] Luana Betancourt MD, PhD - [employer] Urine Urine specimen obtained by clean catch procedure / Unknown Non-blood Collection / Unknown 10/21/2024 11:50 AM EDT 10/21/2024 4:52 PM EDT us Adiel Price MD LAB URINE ORDERABLES Final Result [facility] [address] [place] [address] * (ABNORMAL) CBC auto differential (10/21/2024 11:50 AM EDT) [facility] WBC 10.2 4.8 - 10.8 K/[facility] LAB HEMETOLOGY METHOD 10/21/2024 2:12 PM EDT [...] [place] LAB HEMETOLOG[facility] MCH 27.9 27.0 - 32.0 pcg LAB HEMETOLOGY METHOD 10/21/2024 2:[facility] MCHC 31.7(L) 32.0 - 37.0 g/dL LAB HEMETOLOGY METHOD 10/21/2024 2:12 PM T [facility] RDW 13.1 11.0 - 15.0 % LAB HEMETOLOGY METHOD 10/21/2024 2:12 PM [facility] Platelets 256 130 - 400 K/mcL LAB HEMETOLOGY METHOD 10/21/2024 2:12 PM [facility] MPV 12.2(H) 7.0 - 11.0 [place] LAB HEMETOLOGY METHOD 10/21/2024 2:12 PM EDT [facility] NRBC 0.0 <1.0 % LAB HEMETOLOGY METHOD 10/21[facility]2024 [facility] NRBC Absolute 0.00 <0.10 K/mcL LAB HEMETOLOGY METHOD 10/21/2024 2:[facility] Neutrophils Relative 47.7 % LAB HEMETOLOGY METHOD 10/21/2024 2:12 PM EDT [facility] Lymphocytes Relative 39.1 % LAB HEMETOLOGY METHOD 10/21/2024 2:12 PM EDT [facility] Monocytes Relative 9.8 % LAB HEMETOLOGY METHOD 10/21/2024 2:[facility] Eosinophils Relative 2.3 % LAB HEMETOLOGY METHOD 10/21/2024 2:12 PM EDT [facility] Basophils Relative 0.9 % LAB HEMETOLOGY METHOD 10/21/2024 2:12 PM [facility] Immature Granulocytes Relative 0.2 % LAB HEMETOLOGY METHOD 10/21/2024 2:12 PM [facility] Neutrophils Absolute 4.85 1.50 - 7.00 K/mcL LAB HEMETOLOGY METHOD 10/21/2024 2:12 PM [facility] Lymphocytes Absolute 3.97 1.00 - 5.00 K/mcL LAB HEMETOLOGY METHOD 10/21/2024 2:12 PM T [facility] Monocytes Absolute 1.00 0.20 - 1.00 K/mcL LAB HEMETOLOGY METHOD 10/21/2024 2:12 PM T [facility] Eosinophils Absolute 0.23 0.00 - 0.50 K/mcL LAB HEMETOLOGY METHOD 10/21/2024 2:12 PM EDT [facility] Basophils Absolute 0.09 0.00 - 0.20 K/mcL LAB HEMETOLOGY METHOD 10/21/2024 2:12 PM T [facility] Immature Granulocytes Absolute 0.02 0.00 - 0.03 K/mcL LAB HEMETOLOGY METHOD 10/21/2024 2:12 PM [facility] Blood Venous blood specimen / Unknown Venipuncture / Unknown 10/21/2024 11:50 AM EDT 10/21/2024 11:50 AM EDT Adiel Price MD LAB BLOOD ORDERABLES Final Result [facility] [address] [place] [address], [place] [phone] * Ferritin (10/21/2024 11:50 AM EDT) Pathologist [facility] Ferritin 228 8 - 252 ng/mL LAB CHEMISTRY METHOD 10/21/2024 3:55 PM EDT [facility] Blood Venous blood specimen / Unknown Venipuncture / Unknown 10/21/2024 11:50 AM EDT 10/21/2024 11:50 AM EDT Adiel Price MD LAB BLOOD ORDERABLES Final Result Performing Organization Address City/[facility]/ZIP Co de Phone Number [facility] [address] [place] [address], [place] [phone] * (ABNORMAL) Hepatic function panel (10/21/2024 11:50 AM EDT) [facility] Total Protein 7.6 6.0 - 8.0 g/dL [...] 3:55 PM EDT [facility] Bilirubin, Indirect 0.3 0.0 - 1.1 mg/dL LAB CHEMISTRY METHOD 10/21/2024 3:55 PM EDT [facility] ALT (SGPT) 36 10 - 60 unit/L LAB CHEMISTRY METHOD 10/21/2024 3:55 PM EDT [facility] AST (SGOT) 27 10 - 42 unit/L LAB CHEMISTRY METHOD 10/21/2024 3:55 PM EDT [facility] Alkaline Phosphatase 137(H) 42 - 121 unit/L LAB CHEMISTRY METHOD 10/21/2024 3:55 PM EDT [facility] Blood Venous blood specimen / Unknown Venipuncture / Unknown 10/21/2024 11:50 AM EDT 10/21/2024 11:50 AM EDT us Adiel Price MD LAB BLOOD ORDERABLES Final Result [facility] [address] [place] [address], [place] [phone] * External Ultrasound Report (08/12/2024) Only the [...] mg/dL LAB CHEMISTRY METHOD 07/08/2024 3:50 PM [facility] Chol/HDL Ratio 2.6 0.0 - 4.4 LAB CHEMISTRY METHOD 07/08/2024 3:50 PM [facility] Blood Venous blood specimen / Unknown Venipuncture / Unknown 07/08/2024 12:22 PM EST 07/08/2024 12:22 PM EST us Adiel Price MD LAB BLOOD ORDERABLES Final Result [facility] [address] [place] [address], * (ABNORMAL) Comprehensive metabolic panel (07/08/2024 12:22 PM EST) Sodium 136 133 - 145 mmol/L LAB CHEMISTRY METHOD 07/08/2024 3:50 PM [facility] Potassium 3.9 3.5 - 5.5 mmol/L LAB CHEMISTRY METHOD 07/08/2024 3:50 PM [facility] Chloride 103 96 - 110 mmol/L LAB CHEMISTRY METHOD 07/08/2024 3:50 PM [facility] CO2 29 21 - 32 mmol/L LAB CHEMISTRY METHOD 07/08/2024 3:50 PM [facility] Anion Gap 4 3 - 11 LAB CHEMISTRY METHOD 07/08/2024 3:50 PM [facility] Glucose 153(H) 70 - 100 mg/dL LAB CHEMISTRY METHOD 07/08/2024 3:50 PM [facility] BUN 13 5 - 25 mg/dL LAB CHEMISTRY METHOD 07/08/2024 3:50 PM [facility] Creatinine 0.83 0.50 - 1.10 mg/dL LAB CHEMISTRY METHOD 07/08/2024 3:50 PM [facility] eGFR 79 >=60 mL/min/1. 73m2 LAB CHEMISTRY METHOD 07/08/2024 3:50 PM [facility] Comment:Calculation based on the Chronic Kidney Disease Epidemiology Collaboration (CKD-EPI) equation refit without adjustment for race. BUN/Creatinine Ratio 15.7 LAB CHEMISTRY METHOD 07/08/2024 3:50 PM [facility] Calcium 10.2 8.5 - 10.5 mg/dL LAB CHEMISTRY METHOD 07/08/2024 3:50 PM [facility] AST (SGOT) 21 10 - 42 unit/L LAB CHEMISTRY METHOD 07/08/2024 3:50 PM [facility] ALT (SGPT) 41 10 - 60 unit/L LAB CHEMISTRY METHOD 07/08/2024 3:50 PM [facility] Alkaline Phosphatase 158(H) 42 - 121 unit/L LAB CHEMISTRY METHOD 07/08/2024 3:50 PM [facility] Total Protein 9.1(H) 6.0 - 8.0 g/dL LAB CHEMISTRY METHOD 07/08/2024 3:50 PM [facility] Albumin 4.1 3.2 - 5.0 g/dL LAB CHEMISTRY METHOD 07/08/2024 3:50 PM [facility] Total Bilirubin 0.6 0.0 - 1.4 mg/dL LAB CHEMISTRY METHOD 07/08/2024 3:50 PM [facility] Blood Venous blood specimen / Unknown Venipuncture / Unknown 07/08/2024 12:22 PM EST 07/08/2024 12:22 PM EST us Jon CASSIDY LAB BLOOD ORDERABLES Final Resu lt [facility] [address] [place] [address], [place] [phone] * Depression Screening (11/04/2023) [facility] Depression Screening ABSTRACTED Historical Provider HEALTH MAINTENANCE Final Result * Colonoscopy (11/01/2023) Colonoscopy no interpretation , abstracted Anatomical Region Laterality Modality Other Result [facility] Historical Provider [facility] Final Result * SCREENING MAMMOGRAPHY BI 2-VIEW [...] % Breast cancer risk category Low (<15%) Result [facility] Daryl CASSIDY IMG XR PROCEDURES Final Result * Hepatitis C Screening (04/07/2020) Hepatitis C Screening ABSTRACTED Result [facility] Historical Provider [facility] Final Result * Cervical Cancer Screening: HPV (02/11/2020) Pathologist [facility] Cervical Cancer Screening: HPV negative,a bstracted us Historical Provider HEALTH MAINTENANCE Final Result from Last 3 Months or Most Recently Relevant to Health Maintenance Insurance [facility] [employer] Care Teams Traffic Control Officer Relationship Specialty Start Date End Date Adiel Price MD [address] [place] [address] PCP - General Internal Medicine 12/16/21
== END 2024-10-28 12:19 | disposition home or self-care (01) ==
PROVIDERS: PCP Internal Medicine; Visit Provider Student in an Organized Health Care Education/Training Program
DX: M05.79 Rheumatoid arthritis with rheumatoid factor of multiple sites without organ or systems involvement (principal); M19.041 Primary osteoarthritis, right hand; M19.042 Primary osteoarthritis, left hand; Z13.820 Encounter for screening for osteoporosis; Z51.81 Encounter for therapeutic drug level monitoring; Z79.620 Long term (current) use of immunosuppressive biologic; Z79.52 Long term (current) use of systemic steroids
CPT/HCPCS: 99214; G2211

== ENCOUNTER 2024-10-28 12:21 | Outpatient (REF) | payer OTHER, SELFPAY ==
[2024-11-01 20:59] LABS: Adalimumab Drug Level 5.9 mcg/mL; Anti-Adalimumab Antibody 11 AU (<10)
== END 2024-10-28 12:22 | disposition home or self-care (01) ==
LOC: HO.10HDL 12:21
PROVIDERS: Visit Provider Student in an Organized Health Care Education/Training Program
DX: M05.9 Rheumatoid arthritis with rheumatoid factor, unspecified (principal); M19.041 Primary osteoarthritis, right hand; M19.042 Primary osteoarthritis, left hand; Z51.81 Encounter for therapeutic drug level monitoring; Z79.620 Long term (current) use of immunosuppressive biologic; Z79.52 Long term (current) use of systemic steroids
CPT/HCPCS: 36415; 80145; 83520; 99212

== ENCOUNTER 2025-01-28 11:45 | Outpatient (REF) | payer OTHER, SELFPAY ==
--- OUTSIDE RECORDS SUMMARY | 2025-01-28 14:45 | XMS_ITS | Clinical Summary ---
Author Organization 175 [facility] Address [address] [place] [address] Phone Care Team Providers Care Fire Lieutenant Name Role Phone Adiel Price MD Primary [...] mouth daily. - Or 08/05/19 22 Active nystatin-triam cinolone (MYCOLOG II) ointment Apply [...] SPASMS. 90 tablet 1 10/02/19 25 Active metFORMIN XR (GLUCOPHAGE-XR ) 500 mg 24 hr tablet Take 1 tablet (500 mg total) by mouth 1 (one) time each day with breakfast. Do not crush, chew, or split. 90 each 1 10/14/19 25 026 Active valACYclovir (VALTREX) 500 mg tablet Take 1 tablet (500 mg total) by mouth 2 (two) times a day. 60 tablet 2 11/26/19 25 Active pantoprazole (PROTONIX) 40 mg EC tablet TAKE 1 TABLET BY MOUTH 1 TIME EACH DAY. 90 tablet 1 11/28/19 25 Active aspirin 81 mg EC tablet TAKE 1 TABLET BY MOUTH EVERY DAY 90 tablet 1 12/23/19 25 Active oxyCODONE-acet aminophen (PERCOCET) 5-325 mg per tablet Take 1 tablet by mouth 1 (one) time each day if needed for moderate pain. Max Daily Amount: 1 tablet 28 tablet 01/09/20 25 Active amLODIPine (NORVASC) 5 mg tablet TAKE 1 TABLET BY MOUTH 1 TIME EACH DAY. 90 tablet 01/23/20 25 Active atorvastatin (LIPITOR) 20 mg tablet TAKE 1 TABLET (20 MG TOTAL) BY MOUTH ONE TIME EACH DAY 90 tablet 01/23/20 25 Active amLODIPine (NORVASC) 5 mg tablet Take 1 tablet (5 mg total) by mouth 1 (one) time each day. 90 tablet 1 05/02/20 24 025 Discontinued atorvastatin (LIPITOR) 20 mg tablet Take 1 tablet (20 mg total) by mouth 1 (one) time each day. 90 tablet 1 07/30/19 25 025 Discontinued oxyCODONE-acet aminophen (PERCOCET) 5-325 mg per tablet Take 1 tablet by mouth 1 (one) time each day if needed for moderate pain. Max Daily Amount: 1 tablet 29 tablet 12/09/19 25 025 Discontinued(Re order) Active Problems Problem [...] reflux disease 05/30/2021 Seropositive rheumatoid arth ritis ([facility] V24, [facility] V28) 08/29/2017 Overview (02/05/2024): Onset late 2016 - migratory pattern Hydroxychloroquine use not possible due to retinal abnormalities Sulfasalazine started 08/22 - ineffective by 04/23 Methotrexate started 04/23 - soppted 01/24 due to LFT elelvation Humira tried - patient stopped due to anxiety about COVID Lumbar degenerative disc disease 04/04/2017 Overview (02/05/2024): With left sciatica Insomnia 05/19/2014 Fibroid uterus 07/27/2010 Immunizations Name Administration Dates Next Due Influenza [...] With left sciatica Seropositive rheumatoid arth ritis ([facility] V24, [facility] V28) 08/29/2017 DX:Seropositive rheumatoid arthritis (HCC); COMMENT: [...] care for your loved ones. For example, childcare attendant or elderly care for an older adult? [...] 9:30 AM EDT Office Visit Adult Medicine [facility] [address] [place], [place] [phone] Liz Willis PA [address] [place], [place] 03/17/2025 2:00 PM EST Office Visit Obstetrics and Gynecology - [facility] [address] [place], [place] [phone] Emma Ignacio DO [address] [place], [place] Health Maintenance Due Date Last Done Comments Zoster Vaccines (1 of 2) 2011 HIV Screening 04/15/2022 COVID-19 Vaccine ( season) 2025 02/11/2023, 09/22/2021, 12/22/2020, Additional history exists Influenza Vaccine (#1) 2025 , 02/11/2023, 02/21/2022, Additional history exists Cervical Cancer Screening: HPV 02/10/2025 02/11/2020 Hypertension/CHF/CAD Annual BMP Blood Test 07/08/2025 07/08/2024, 08/23/2023 Breast Cancer Screening 08/14/2025 08/15/19 24, 08/02/2022, 05/02/2021, Additional history exists Social Influencers of Health Screening 10/07/2025 10/07/2024 Cholesterol Screening (Lipid Panel) 07/08/2029 07/08/2024, 08/23/2023 Colorectal Cancer Screening: Colonoscopy 10/31/2033 11/01/2023 DTaP,Tdap,and Td Vaccines (3 - Td or Tdap) 01/10/2034 01/11/2024, 04/07/2010 RSV Immunization Adult Patients (1 - 1-dose 75+ series) 02/13/2036 Hepatitis C Screening Completed 04/07/2020 Pneumococcal Vaccine: 50+ Years Completed 07/07/2024 Depression Screening Completed 10/07/2024, 11/04/19 24 HIB Vaccines Aged Out No longer eligi ble based on patient's age to complete this topic HPV Vaccines Aged Out No longer eligi ble based on patient's age to complete this topic Hepatitis A Vaccines Aged Out No long er eligible based on patient's age to complete this topic Hepatitis B Vaccines Aged Out No long er eligible based on patient's age to complete [...] Procedure Name Priority Date/Time Associated Diagnosis Comments COMPREHENSIVE METABOLIC PANEL Routine 07/08/2024 12:22 PM [...] Recently Relevant to Health Maintenance Results * Lipid panel with reflex to direct LDL (07/08/2024 12:22 PM EST) Cholesterol 171 0 - 200 mg/dL LAB CHEMISTRY METHOD 07/08/2024 3:50 PM EST [facility] Triglycerides 62 0 - 150 mg/dL LAB CHEMISTRY METHOD 07/08/2024 3:50 PM [facility] HDL 65 >=40 mg/dL LAB CHEMISTRY METHOD 07/08/2024 3:50 PM [facility] LDL Calculated 94 0 - 100 mg/dL LAB CHEMISTRY METHOD 07/08/2024 3:50 PM [facility] VLDL Cholesterol Dk 12.4 mg/dL LAB CHEMISTRY METHOD 07/08/2024 3:50 PM [facility] Non HDL Chol. (LDL+VLDL) 106 <145 mg/dL LAB CHEMISTRY METHOD 07/08/2024 3:50 PM [facility] Chol/HDL Ratio 2.6 0.0 - 4.4 LAB CHEMISTRY METHOD 07/08/2024 3:50 PM [facility] Blood Venous blood specimen / Unknown Venipuncture / Unknown 07/08/2024 12:22 PM EST 07/08/2024 12:22 PM EST us Adiel Price MD LAB BLOOD ORDERABLES Final Result [facility] [address] [place] [address], * (ABNORMAL) Comprehensive metabolic panel (07/08/2024 12:22 [...] C[facility] LAB BLOOD ORDERABLES Final Resu lt [facility] [address] [place] [address], * Depression Screening (11/04/2023) Depression Screening ABSTRACTED Historical Provider MD HEALTH MAINTENANCE Final Result * Colonoscopy (11/01/2023) [...] Breast cancer risk category Low (<15%) Result [facility] Daryl CASSIDY IMG XR PROCEDURES Final Result * Hepatitis C Screening (04/07/2020) Hepatitis C Screening ABSTRACTED Historical Provider HEALTH MAINTENANCE Final Result * Cervical Cancer Screening: HPV (02/11/2020) Pathologist [facility] Cervical Cancer Screening: HPV negative,a bstracted Historical Provider HEALTH MAINTENANCE Final Result from Last 3 Months or Most Recently Relevant to Health Maintenance Insurance [facility] PLAN Care Teams Fire Lieutenant Relationship Specialty Start Date End Date Adiel Price MD [address] [place] [address] PCP - General Internal Medicine 12/16/21
[2025-01-28 18:13] LABS: MANUAL DIFF FLAG NO
[2025-01-28 18:29] LABS: Hematocrit 43.7 % (37.0-47.0); Hemoglobin 14.1 g/dl (12.0-16.0); Imm Gran Abs Auto 0.03 X10*3/uL (0.00-0.03); Imm Gran Pct Auto 0.3 % (0.0-0.4); Lymphocytes Absolute Auto 2.9 X10*3/uL (1.2-4.9); Mean Corpuscular HGB Conc 32.3 g/dl (31.0-35.0); Mean Corpuscular Hemoglobin 28.1 pg (27.0-33.0); Mean Corpuscular Volume 87.1 fL (80.0-98.0); NRBC Abs Auto 0.000 X10*3/uL (0.0-0.012); NRBC Pct Auto 0.0 /100WBC (0.0-0.2); Platelet Count 223 X10*3/uL (160-400); Red Blood Count 5.02 X10*6/uL (4.20-5.50); White Blood Count 8.9 X10*3/uL (4.8-10.8)
[2025-01-28 18:54] LABS: Alanine Aminotransferase 27 U/L (0-31); Albumin Level 4.0 g/dL (3.5-5.0); Alkaline Phosphatase 98 U/L (39-117); Anion Gap 11 (12-20); Aspartate Amino Transferase 22 U/L (5-31); Blood Urea Nitrogen 12 mg/dL (9-16); Calcium 9.0 mg/dL (8.4-10.2); Carbon Dioxide 29 mmol/L (22-29); Chloride 105 mmol/L (96-108); Estimated Glomerular Filt Rate > 60; Potassium 3.7 mmol/L (3.3-5.1); Sodium 141 mmol/L (135-145); Total Protein 7.1 g/dL (6.5-8.0)
== END 2025-01-28 11:46 | disposition home or self-care (01) ==
LOC: HO.HKASLDS 11:45
PROVIDERS: Visit Provider Student in an Organized Health Care Education/Training Program
DX: M05.9 Rheumatoid arthritis with rheumatoid factor, unspecified (principal)
CPT/HCPCS: 36415; 80053; 85025; 85652; 86140

== ENCOUNTER 2025-01-30 10:37 | Outpatient (AMB) | payer OTHER, SELFPAY ==
--- NOTE | 2025-01-30 10:46 | A.OFFVIS_ITS ---
Vital Signs 01/30/25 10:50 Height 5 ft 4 in Weight 160 lb 0.889 oz BMI 27.5 BP 132/78 Blood Pressure Location Lt brachial Position Sitting Pulse 68 Pulse Source Pulse Oximeter Pulse Oximetry (%) 98 Oxygen Delivery Method Room Air Intake Visit Reasons: follow up Intake Note: Patient presents for RA/OA follow up. Allergies No Known Allergies Allergy (Verified 01/30/25 10:49) Medication List - Last Reconciled 01/30/25 by Tana Triplett MD amlodipine 5 mg PO DAILY atorvastatin 20 mg PO DAILY cholecalciferol (vitamin D3) 50 mcg PO DAILY cyclobenzaprine 5 mg PO TID PRN diclofenac sodium 1% 1-2 gram topically to affected joints twice a day if needed etanercept (Enbrel SureClick) 50 mg subcut QWEEK metformin ER 500 mg PO QAM oxycodone-acetaminophen 5-325 mg 1 tab PO DAILY PRN pantoprazole (Protonix) 40 mg PO DAILY prednisone 5 mg PO DAILY valacyclovir 500 mg PO BID HPI Comments Details: Patient is a 64-year-old female with GERD, polyarticular osteoarthritis and seropositive rheumatoid arthritis here today for follow up Interval History: Patient last seen 10/28/24 with me. - On Humira 40mg SC and prednisone 2mg daily - At that time she was complaining of joint pain, particularly in her hands. No change was made to her Humira at that time and she was recommended topical diclofenac for her hand OA - The topical diclofenac helps a bit but still complaining of bilateral pain to the hands with stiffness and swelling in the AM - Has pain both in the evening after a long day and in the AM - Prednisone increased to 5mg Insurance no longer covering Humira, changed to Yuflyma but this was not efficacious, changed to Cimzia but insurance did not approve that, changed to Enbrel Today - On Enbrel 50mg SC weekly and prednisone 5mg daily - Prednisone increased to 5mg at 10/2024 visit from 2mg - Notes that her hands are less stiff in the AM - Overall feels better on this dose Rheumatologic History: ++RF ++CCP Onset late 2016 - migratory pattern Hydroxychloroquine use not possible due to retinal abnormalities Sulfasalazine started 08/22 - ineffective by 04/23 Methotrexate started 04/23 - stopped 01/24 due to LFT elelvation Humira started summer 2020: She did well but was frightened by COVID outbreak so she stopped that at the end of 2020. Humira restarted 2021 advanced to weekly 02/2023 Current Rheumatology Medication(s): Enbrel 50mg SC weekly Prednisone 5 mg daily [facility] Medical History (Updated 06/18/24 @ 16:06 by Tana Triplett MD) Encounter for monitoring of adalimumab therapy Surgical History No history of previous surgery Family History Mother CHF (congestive heart failure) Arthritis Father Diabetes Brother Diabetes Sister CHF (congestive heart failure) Arthritis Maternal Grandfather Cancer Maternal Grandmother Cancer Social History Household Members: Spouse Housing: Apartment Are you a primary critical care unit manager to a significant other at home: No Do you presently have visiting nurse or other home services: No 75 years or older and lives alone: No Alcohol intake: never Patient Tobacco Use Status: Former Tobacco user Years Smoked: Quit 1 year ago e-Cigarette/Vaping Use: Never Used service: No Current occupational status: employed Current occupation: [employer] Review of Systems Const Details: Review of Systems Constitutional: Denies fever, chills, weight loss ENT: Denies vision changes, eye pain or eye redness, dental caries, dry mouth GI: Denies nausea, vomiting, diarrhea, abdominal pain, change in BM Pulm: Denies SOB, MORATAYA, hemoptysis, wheezing Cards: Denies chest pain, palpitations Skin: Denies Raynaud's, rash, nail changes, photosensitivity, PRODUCT TECHNICIAN: Denies headaches, weakness, paresthesias, recurrent falls MSK: as per HPI All other systems reviewed and are unremarkable except noted above Physical Exam Exam Exam: Vital signs reviewed Physical Examination CONSTITUITIONAL Patient alert and cooperative. Well appearing and in no apparent painful distress MSK Hands * Right Hand: Able to make a fist. No swelling or but TTP DIPs and scattered PIPs. No tenderness to palpation of the MCPs. * Left Hand: Able to make a fist. No swelling or but TTP DIPs and scattered PIPs. No tenderness to palpation of the MCPs. * Herbedens nodes noted bilaterally Wrists * Right Wrist: Full ROM to flexion and extension. No swelling or TTP * Left Wrist: Full ROM to flexion and extension. No swelling or TTP Elbows * Right Elbow: Full ROM. No swelling or TTP. No TTP of the medial epicondyle. No TTP of the lateral epicondyle * Left Elbow: Full ROM. No swelling or TTP. No TTP of the medial epicondyle. No TTP of the lateral epicondyle Shoulders * Right shoulder: Full ROM. No swelling noted. TTP of the AC joint. TTP of the subacromial bursa. No TTP of the posterior shoulder * Left shoulder: Full ROM. No swelling noted. TTP of the AC joint. TTP of the subacromial bursa. No TTP of the posterior shoulder Knees * Right knee: Full ROM. No swelling noted. No TTP of the knee joint line. No TTP of pes anserine bursa * Left knee: Full ROM. No swelling noted. No TTP of the knee joint line. No TTP of pes anserine bursa. * Crepitations felt bilaterally Ankles * Right ankle: Good ankle dorsiflexion and plantar flexion. No swelling. No TTP of the ankle joint * Left ankle: Good ankle dorsiflexion and plantar flexion. No swelling. No TTP of the ankle joint Feet * Right foot: Negative squeeze test * Left foot: Negative squeeze test Tender points? * No tenderness to palpation of the bilateral trapezius, supraspinatus, anterior costochondral junctions, bilateral suboccipital muscle insertions SKIN No rashes Vital Signs: Last Vital Signs Pulse 68 01/30/25 10:50 BP 132/78 01/30/25 10:50 Pulse Ox 98 01/30/25 10:50 Oxygen Delivery Method Room Air 01/30/25 10:50 BMI result Body Mass Index 27.5 Results Reviewed Results Reviewed: Laboratory Tests 01/28/25 11:47 WBC 8.9 RBC 5.02 Hgb 14.1 Plt Count 223 ESR 7 Sodium 141 Potassium 3.7 Chloride 105 Carbon Dioxide 29 BUN 12 Creatinine 0.83 AST 22 ALT 27 C-Reactive Protein < 0.10 Laboratory Tests 06/30/24 12:11 Hepatitis A IgM Ab Nonreactive Hep Bs Antigen Negative Hep Bs Antibody NONREACTIVE Hep B Core Total Ab Nonreactive Hepatitis C Ab (EIA) Nonreactive TB Test (T-Spot) Com Negative Assessment & Plan Assessment & Plan (1) Seropositive rheumatoid arthritis: Comment: ++RF ++CCP Onset late 2016 - migratory pattern Hydroxychloroquine use not possible due to retinal abnormalities Sulfasalazine started 08/22 - ineffective by 04/23 Methotrexate started 04/23 - stopped 01/24 due to LFT elelvation Humira started summer 2020: She did well but was frightened by COVID outbreak so she stopped that at the end of 2020. Humira restarted 2021 advanced to weekly 02/2023 Code(s): M05.9 - Rheumatoid arthritis with rheumatoid factor, unspecified Category: Medical Plan: #Seropositive RA Patient is a 64-year-old female with seropositive rheumatoid arthritis. TTP of the DIPs bilaterally. No further TTP of the MCPs. DIPs likely due to OA activity Will continue Enbrel with low dose prednisone for now Plan - Enbrel 50mg SC every week - Prednisone 5mg daily - RTC 4 months - Labs before visit: CBC, CMP, ESR, CRP (2) Osteoarthritis of hands, bilateral: Code(s): M19.041 - Primary osteoarthritis, right hand; M19.042 - Primary osteoarthritis, left hand Category: Medical Qualifiers: Osteoarthritis type: primary Qualified Code(s): M19.041 - Primary osteoarthritis, right hand; M19.042 - Primary osteoarthritis, left hand Plan: #Bilateral hand OA Continue topical diclofenac Plan - Topical diclofenac 1% 4 times a day (3) Osteoporosis screening: Code(s): Z13.820 - Encounter for screening for osteoporosis Plan: #Osteoporosis screening Patient last DEXA 11/17/2022 which was normal. Given that she is on long-term steroids we will need to do a repeat DEXA this year. Plan - DEXA ordered (4) On prednisone therapy: Code(s): Z79.52 - intermission coordinator (current) use of systemic steroids Category: Medical Plan: #Long-term Use of Steroids Discussed with patient the risks and benefits of steroid for managing the rheumatic condition Benefits include: - Reduced pain, improved mobility, increased participation in activities, and decreased progression of disease Risks include: - GI upset, potential ultrasound worsening or formation (especially in patients > 65 years old), elevated blood pressure/worsening hypertension, elevated blood sugar/worsening diabetes control, worsening of bone density, elevated lipids/worsening triglycerides, cataract formation, weight gain Recommended using proton pump inhibitors (PPIs) for the duration of steroid use to reduce the risk of gastric ulcers and vitamin-D daily to reduce the risk of osteoporosis Labs checked: ?A1c, T spot, hepatitis-B and C serologies Pneumocystis jiroveci prophylaxis: ?Patient with risk factors including steroids greater than 50 mg for more than 30 days, age greater than 60 years, and lung involvement from underlying rheumatic disease requires prophylaxis and will be given so (5) Encounter for monitoring of etanercept therapy: Code(s): Z51.81 - Encounter for therapeutic drug level monitoring; Z79.620 - intermission coordinator (current) use of immunosuppressive biologic Plan: #Long-term Use of TNF Inhibitors: Enbrel Discussed with the patient the benefits and risks of TNF inhibitors for the management of the rheumatic condition Benefits include reduce pain, maintenance of remission and reduction of flares as well as progression of the disease Risks include injection sites/infusion reactions, serious infections (such as bacterial infections, opportunistic infections), malignancy, delaminating syndromes, autoimmune phenomena, CHF exacerbations, palmar plantar psoriasis and cytopenias Recommended rotating injection sites, and holding medication during and for up to 1 week after resolution of a febrile illness or open skin wound Plan I spent 30 minutes reviewing the record and labs, taking a history, examining the patient, discussing the treatment plan and documenting in the medical record Coding Level of Care Code Est Pt Level 4 (76276) Complex EM visit Add On G2211 Diagnoses Seropositive rheumatoid arthritis M05.9 Primary osteoarthritis of both hands M19.041; M19.042 Osteoarthritis type: primary Osteoporosis screening Z13.820 On prednisone therapy Z79.52 Encounter for monitoring of etanercept therapy Z51.81; Z79.620
[2025-01-30 10:50] VITALS: BP 132/78; PULSE 68; O2SAT 98; BMI 27.5
--- OUTSIDE RECORDS SUMMARY | 2025-01-30 12:07 | XMS_ITS | Clinical Summary ---
Author Organization [address] [facility] Address [address] [place] [address] Phone Care Team Providers Care [employer] Crop Manager Name Role Phone Adiel Price MD Primary [...] reflux disease 05/30/2021 Seropositive rheumatoid arth ritis (CMS/[facility] V24, [facility] V28) 08/29/2017 Overview (02/05/2024): Onset late 2016 [...] With left sciatica Seropositive rheumatoid arth ritis ([facility] V24, [facility] V28) 08/29/2017 DX:Seropositive rheumatoid arthritis (HCC); COMMENT: [...] care for your loved ones. For example, exceptional children's teacher or elderly care for an older adult? [...] 9:30 AM EDT Office Visit Adult Medicine [facility] [address], [place] [phone] Liz Willis PA [address] [place], [place] 03/17/2025 2:00 PM EST Office Visit Obstetrics and Gynecology - [facility] [address] [place], [place] [phone] Emma Ignacio DO [address] [place], [place] Health Maintenance Due Date Last Done [...] LAB CHEMISTRY METHOD 07/08/2024 3:50 PM EST [facility] Triglycerides 62 0 - 150 mg/dL LAB CHEMISTRY METHOD 07/08/2024 3:[address] [facility] HDL 65 >=40 mg/dL LAB CHEMISTRY METHOD 07/08/2024 3:[address] [facility] LDL Calculated 94 0 - 100 mg/dL LAB CHEMISTRY METHOD 07/08/2024 3:[address] [facility] VLDL Cholesterol Dk 12.4 mg/dL LAB CHEMISTRY METHOD 07/08/2024 3:[address] [facility] Non HDL Chol. (LDL+VLDL) 106 <145 mg/dL LAB CHEMISTRY METHOD 07/08/2024 3:[address] [facility] Chol/HDL Ratio 2.6 0.0 - 4.4 LAB CHEMISTRY METHOD 07/08/2024 3:[address] [facility] Blood Venous blood specimen / Unknown Venipuncture / Unknown 07/08/2024 12:22 PM EST 07/08/2024 12:22 PM EST us Adiel Price MD LAB BLOOD ORDERABLES Final Result [facility] [address] [place] [address], * (ABNORMAL) Comprehensive metabolic panel (07/08/2024 12:22 PM EST) Sodium 136 133 - 145 mmol/L LAB CHEMISTRY METHOD 07/08/2024 3:[address] [facility] Potassium 3.9 3.5 - 5.5 [...] [facility] Comment:Calculation based on the Chronic [...] g/dL LAB CHEMISTRY METHOD 07/08/2024 3:[address] [facility] Albumin 4.1 3.2 - 5.0 g/dL LAB CHEMISTRY METHOD 07/08/2024 3:[address] [facility] Total Bilirubin 0.6 0.0 - 1.4 mg/dL LAB CHEMISTRY METHOD 07/08/2024 3:[address] [facility] Blood Venous blood specimen / Unknown Venipuncture / Unknown 07/08/2024 12:22 PM EST 07/08/2024 12:22 PM EST Jon CASSIDY LAB BLOOD ORDERABLES Final Resu lt [facility] ([facility] [address] [place] [address], * Depression Screening (11/04/2023) Depression Screening ABSTRACTED [...] Breast cancer risk category Low (<15%) Result [facility] Daryl CASSIDY IMG XR PROCEDURES Final Result * Hepatitis C Screening (04/07/2020) Hepatitis C Screening ABSTRACTED Historical Provider HEALTH MAINTENANCE Final Result * Cervical Cancer Screening: HPV (02/11/2020) Pathologist [facility] Cervical Cancer Screening: HPV negative,a bstracted Historical Provider HEALTH MAINTENANCE Final Result from Last 3 Months or Most Recently Relevant to Health Maintenance Insurance [facility] [employer] Care Teams [employer]ision Crop Manager Relationship Specialty Start Date End Date Adiel Price MD [address] [place] [address] PCP - General Internal Medicine 12/16/21
== END 2025-01-30 11:17 | disposition home or self-care (01) ==
LOC: HO.RHES 10:37
PROVIDERS: PCP Internal Medicine; Visit Provider Student in an Organized Health Care Education/Training Program
DX: M05.9 Rheumatoid arthritis with rheumatoid factor, unspecified (principal); M19.041 Primary osteoarthritis, right hand; M19.042 Primary osteoarthritis, left hand; Z13.820 Encounter for screening for osteoporosis; Z79.52 Long term (current) use of systemic steroids; Z51.81 Encounter for therapeutic drug level monitoring; Z79.620 Long term (current) use of immunosuppressive biologic
CPT/HCPCS: 99214

== ENCOUNTER → 2025-01-30 10:37 | Outpatient (BNVA) | payer OTHER, SELFPAY | PROVIDERS: PCP Internal Medicine; Visit Provider Student in an Organized Health Care Education/Training Program | DX: M05.70 Rheumatoid arthritis with rheumatoid factor of unspecified site without organ or systems involvement (principal); M19.041 Primary osteoarthritis, right hand; M19.042 Primary osteoarthritis, left hand; Z13.820 Encounter for screening for osteoporosis; Z79.52 Long term (current) use of systemic steroids | CPT/HCPCS: 99212 ==